=== PATIENT | male | born 1985 | race Caucasian/White ===

== ENCOUNTER 2023-10-12 10:40 | Outpatient (REF) | payer MEDICAID, SELFPAY ==
[2023-10-12 14:45] LABS: MANUAL DIFF FLAG NO
[2023-10-12 14:47] LABS: Basophils Percent Auto 0.4 % (0-2); Eosinophils Absolute Auto 0.1 X10*3/uL (0.0-0.4); Eosinophils Percent Auto 2.8 % (0-4); Hematocrit 45.3 % (42.0-52.0); Hemoglobin 15.1 g/dl (14.0-18.0); Imm Gran Abs Auto 0.02 X10*3/uL (0.00-0.03); Imm Gran Pct Auto 0.4 % (0.0-0.4); Lymphocytes Absolute Auto 1.8 X10*3/uL (1.2-4.9); Lymphocytes Percent Auto 35.2 % (20-40); Mean Corpuscular HGB Conc 33.3 g/dl (31.0-36.0); Mean Corpuscular Hemoglobin 28.7 pg (27.0-33.0); Mean Platelet Volume 10.1 fL (9.4-12.4); Monocytes Absolute Auto 0.5 X10*3/uL (0.1-1.2); Monocytes Percent Auto 9.1 % (2-11); Neutrophils Absolute Auto 2.6 x10*3/uL (2.0-8.3); Neutrophils Percent Auto 52.1 % (45-73); Platelet Count 281 X10*3/uL (160-400); Red Blood Count 5.27 X10*6/uL (4.60-5.80); Red Cell Distribution Width 12.9 % (11.0-16.0); White Blood Count 5.1 X10*3/uL (4.8-10.8)
[2023-10-12 14:54] LABS: Estimated Average Glucose 100 mg/dL; Hemoglobin A1c % 5.1 % (<6.0)
[2023-10-12 15:08] LABS: Anion Gap 12 (12-20); Blood Urea Nitrogen 11 mg/dL (9-16); Calcium 9.2 mg/dL (8.4-10.2); Carbon Dioxide 27 mmol/L (22-29); Chloride 104 mmol/L (96-108); Estimated Glomerular Filt Rate > 60; Glucose Fasting 80 mg/dL (60-99); Potassium 3.9 mmol/L (3.3-5.1); Sodium 139 mmol/L (135-145)
== END 2023-10-12 10:41 | disposition home or self-care (01) ==
LOC: HO.CHCLDS 10:40
PROVIDERS: Visit Provider Nurse Practitioner Family
DX: R60.9 Edema, unspecified (principal)
CPT/HCPCS: 36415; 80048; 83036; 84443; 85025

== ENCOUNTER 2023-12-26 12:43 | Outpatient (REF) | payer MEDICAID, SELFPAY ==
[2023-12-26 13:52] LABS: Appearance Urine Clear; Color Urine Yellow; Glucose Urine UA Negative (Negative); Leukocyte Esterase Urine Small (1+) (Negative); Nitrite Urine Negative (Negative); PH 5.5 (5.0-9.0); UMIC TRIGGER UACC YES; Urine Blood Negative (Negative); Urine Ketones Negative (Negative); Urine Protein Negative (Neg-Trace)
[2023-12-26 14:02] LABS: Bacteria Urine None Seen (None Seen); RBC Urine 0-2 /HPF (0-2); UACC Culture Trigger YES
[2023-12-26 14:53] LABS: CT PCR NOT DETECTED (Not Detect.); NG PCR NOT DETECTED (Not Detect.)
[2023-12-26 16:10] LABS: MANUAL DIFF FLAG NO
[2023-12-26 16:24] LABS: Basophils Absolute Auto 0.1 X10*3/uL (0.0-0.2); Basophils Percent Auto 0.9 % (0-2); Eosinophils Absolute Auto 0.2 X10*3/uL (0.0-0.4); Eosinophils Percent Auto 2.6 % (0-4); Imm Gran Abs Auto 0.02 X10*3/uL (0.00-0.03); Imm Gran Pct Auto 0.3 % (0.0-0.4); Lymphocytes Absolute Auto 1.7 X10*3/uL (1.2-4.9); Lymphocytes Percent Auto 29.6 % (20-40); Mean Corpuscular HGB Conc 33.3 g/dl (31.0-36.0); Mean Corpuscular Hemoglobin 28.6 pg (27.0-33.0); Mean Corpuscular Volume 85.7 fL (80.0-98.0); Mean Platelet Volume 10.3 fL (9.4-12.4); Monocytes Absolute Auto 0.5 X10*3/uL (0.1-1.2); Monocytes Percent Auto 8.9 % (2-11); Neutrophils Absolute Auto 3.4 x10*3/uL (2.0-8.3); Neutrophils Percent Auto 57.7 % (45-73); Platelet Count 320 X10*3/uL (160-400); Red Cell Distribution Width 13.1 % (11.0-16.0); White Blood Count 5.8 X10*3/uL (4.8-10.8)
[2023-12-26 16:27] LABS: Estimated Average Glucose 100 mg/dL; Hemoglobin A1c % 5.1 % (<6.0)
[2023-12-26 16:44] LABS: Alanine Aminotransferase 46 U/L (0-40); Albumin Level 4.5 g/dL (3.5-5.0); Alkaline Phosphatase 59 U/L (39-117); Anion Gap 11 (12-20); Aspartate Amino Transferase 31 U/L (5-37); Bilirubin Total 0.4 mg/dL (0.0-1.0); Blood Urea Nitrogen 12 mg/dL (9-16); Calcium 10.1 mg/dL (8.4-10.2); Carbon Dioxide 28 mmol/L (22-29); Chloride 103 mmol/L (96-108); Cholesterol 189 mg/dL (<200); Estimated Glomerular Filt Rate > 60; Glucose Random 93 mg/dL (60-115); HDL Cholesterol 47 mg/dL (>40); LDL Cholesterol Calculated 122 mg/dL (<100); Sodium 138 mmol/L (135-145); Total Protein 8.1 g/dL (6.5-8.0); Triglycerides 100 mg/dL (<150)
[2023-12-26 17:00] LABS: TSH reflex Free T4 1.85 uIU/mL (0.32-4.0)
[2023-12-27 08:17] LABS: HIV AB/AG Nonreactive (Nonreactive); HIV Num 1 0.06 S/CO (0.00-0.99); ~HepC Num1 0.11 S/CO (0.00-0.79); ~Hepatitis C Antibody Nonreactive (Nonreactive)
[2023-12-28 16:09] LABS: RPR Rapid Plasma Reagin NON-REACTIVE (NON-REACTIVE)
== END 2023-12-26 12:44 | disposition home or self-care (01) ==
LOC: HO.HHCL 12:43
PROVIDERS: Visit Provider General Practice
DX: I10 Essential (primary) hypertension (principal); R30.0 Dysuria; F32.A Depression, unspecified; Z11.3 Encounter for screening for infections with a predominantly sexual mode of transmission
CPT/HCPCS: 0353U; 36415; 80053; 80061; 81001; 83036; 84443; 85025; 86592; 86803; 87086; 87389

== ENCOUNTER 2024-09-08 10:09 | Outpatient (REF) | payer MEDICAID, SELFPAY ==
--- NOTE | ~2024-09-08 | XR_ITS ---
EXAMINATION: XR CHEST CLINICAL INFORMATION: hemoptysis COMPARISON: June 20, 2016. TECHNIQUE: 2 views of the chest were obtained. FINDINGS: Poor inspiration. No consolidation, pleural effusion or pneumothorax. Cardiomediastinal silhouette demonstrates prominence of the inferior perihilar regions bilaterally. Heart silhouette is normal in size. Multilevel thoracic spondylosis. XR/XR chest 2V IMPRESSION: Consider chronic interstitial lung disease. Superimposed acute small airway inflammatory disease cannot be excluded. Electronically signed by: Timbo Osullivan MD 09/08/2024 10:41 AM LIVE BRIC[facility]
--- OUTSIDE RECORDS SUMMARY | 2024-09-08 11:22 | XMS_ITS | Clinical Summary ---
Author Organization 175 [facility] Address 175 [place] [address] Phone Care Team Providers Care Vamper Name Role Phone Leslie Rios MD Primary Care Provider [phone] Allergies Active Allergy Reactions Criticality Noted Date Comments Other 10/26/2022 Seasonal Other Reaction(s): Rash/Dermatitis, Runny Nose/Rhinitis Medications buPROPion XL (WELLBUTRIN XL) 150 mg 24 hr tablet Take 1 Tablet by mouth every morning for 30 days. 4 Active acetaminophen (TYLENOL) 500 mg capsule Take by mouth. Activ e TORSEMIDE ORAL Take 10 mg by mouth 2 (two) times a day. Active lisinopriL (PRINIVIL,ZESTRIL ) 2.5 mg tablet Take 1 tablet (2.5 mg total) by mouth 1 (one) time each day. Active ascorbic acid (VITAMIN C) 500 mg tablet Take 1 tablet (500 mg total) by mouth 1 (one) time each day. Active medical supply, miscellaneous (MISCELLANEOUS MEDICAL SUPPLY MISC) Inhale by mouth. 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 10/25/2022 Hypertension 10/25/2022 Obstructive sleep apnea syndrome 04/23/2017 Cough 11/03/2016 Class 3 severe obesity due t o excess calories with body mass index (BMI) of 50.0 to 59.9 in adult Encounters Date Type Department Care Team Description 08/12/2024 [facility] 175 [facility] [address] [place] [phone] Hailey Ledezma MD New Rx for CPAP machine 08/04/2024 Telephone [facility] 175 [facility] [address] [place] [phone] Janis Shi MA DME 06/13/2024 8:15 AM EST [facility] 175 [facility] [address] [place] [phone] Hailey Ledezma MD Obstructive sleep apnea syndrome (Primary Dx) 06/13/2024 [facility] 175 [facility] [address] [place] [phone] Janis Shi MA DME request (Order for CPAP replacement sent to [facility]. ) from Last 3 Months Social History Tobacco Use Types Packs/Day Years Used Date Smoking Tobacco: Never Smokeless Tobacco: Never Tobacco Cessation:Counseling Given: Not Answered Alcohol Use Standard Drinks/Week Comments No 0 (1 standard drink = 0.6 oz pur e alcohol) Sex and Gender Information Value Date Recorded Sex Assigned at Not on file Legal Sex Male 6:19 PM EST Gender Identity Not on file Sexual Orientation Not on file Obstetrics History Last Filed Vital Signs Vital Sign Reading Time Taken Comments Blood Pressure 132/80 06/13/2024 8:28 AM EST Pulse 75 06/13/2024 8:28 AM EST Temperature 35.7 ??C (96.2 ??F) 06/13/2024 8:28 AM ES T Respiratory Rate 16 06/13/2024 8:28 AM EST Oxygen Saturation 97% 06/13/2024 8:28 AM EST Inhaled Oxygen Concentration - - Weight 180 kg (396 lb) 06/13/2024 8:28 AM EST Height 177.8 cm (5' 10 ) 06/13/2024 8:28 AM EST Body Mass Index 56.82 06/13/2024 8:28 AM EST Plan of Treatment Upcoming Encounters Date Type Department Care Team (Late st Contact Info) Description 09/09/2024 11:15 AM EST Office Visit Bariatric Surgery - [place] 175 [facility] [address] [place] [phone] Lyndsey Frank MD 175 [facility] [address] [place] [address] 05/15/2025 2:45 PM EDT Office Visit Pulmonolgy - [place] 175 [facility] [address] [place] [phone] Hailey Ledezma MD 175 [facility] [address] [place] [address] Health Maintenance Due Date Last Done Comments Hepatitis B Vaccines (1 of 3 - 19+ 3-dose series) 10/05/2003 Social Influencers of Health Screening 06/17/2022 Hypertension/CHF/CAD Annual BMP Blood Test 08/29/2023 COVID-19 Vaccine ( season) 2024 08/11/2021, 10/13/2020, 09/15/2020 Depression Screening 12/25/2024 12/26/2023, 09/03/19 24 DTaP,Tdap,and Td Vaccines (2 - Td or Tdap) 04/30/2027 04/30/2017 Cholesterol Screening (Lipid Panel) 12/25/2028 12/26/2023 Pneumococcal Vaccine: Pediatrics (0 to 5 Years) and At-Risk Patients (6 to 64 Years) Aged Out 05/10/2016 No longer eligible based on patient's age to complete this topic HIV Screening Completed 12/26/2023 Hepatitis C Screening Completed 12/26/2023 Influenza Vaccine Completed 06/02/2024, , 04/30/2017, Additional history exists HIB Vaccines Aged Out No longer eligi ble based on patient's age to complete this topic HPV Vaccines Aged Out No longer eligi ble based on patient's age to complete this topic Hepatitis A Vaccines Aged Out No long er eligible based on patient's age to complete this topic IPV Vaccines Aged Out No longer eligi ble based on patient's age to complete this topic MMR Vaccines Aged Out No longer eligi ble based on patient's age to complete this topic Meningococcal ACWY Vaccine Aged Out N o longer eligible based on patient's age to complete this topic Meningococcal B Vacine Aged Out No lo nger eligible based on patient's age to complete this topic RSV Immunization Patients Under 20 months Aged Out No longer eligible based on patient's age to complete this topic Varicella Vaccines Aged Out No longer eligible based on patient's age to complete this topic Procedures Procedure Name Priority Date/Time Associated Diagnosis Comments POLYSOMNOGRAPHY Routine 09/04/2024 11:35 AM EST DEPRESSION SCREENING Routine 09/03/2023 from Last 3 Months or Most Recently Relevant to Health Maintenance Results * Polysomnography (09/04/2024 11:35 AM EST) Historical Provider SLEEP CENTER ORDERABLES F inal Result * Depression Screening (09/03/2023) Depression Screening Abstracted us Historical Provider HEALTH MAINTENANCE Final Result from Last 3 Months or Most Recently Relevant to Health Maintenance Insurance [facility] Care Teams Vamper Relationship Specialty Start Date End Date Leslie Rios MD [address] [place] [phone] PCP - General 10/02/22
--- OUTSIDE RECORDS SUMMARY | 2024-09-08 11:22 | XMS_ITS | Encounter Summary ---
Author Organization [employer] [facility] Address 75 [facility] 7t [place] [address] Care Team Providers Care Billet Heater Operator Name Role Phone Tenisha Castillo MD Primary Care Provider [phone] Reason for Referral * Consultation (Routine) - Closed Specialty Diagnoses / Procedures Referred By Contac t Referred To Contact Sleep Medicine Diagnoses LUPE (obstructive sleep apnea) Tenisha Castillo MD [address] [place] [address] Phone: tel: fax: Hailey Ledezma [address] [facility] [address] [place] [address] Phone: tel: fax: Referral ID Status Reason Start Date Expiration Date V isits Requested Visits Authorized [id number] Closed Specialty Services Required 10/10/2023 10/09/2024 6 6 Encounter Details Date Type Department Care Team (Late st Contact Info) Description 10/10/2023 Orders Only [facility] MED[facility] [address] [place], [place] [phone] Tenisha Castillo MD [address] [place], [place] [phone] LUPE (obstructive sleep apnea) (Primary Dx) Social History Tobacco Use Types Packs/Day Years Used Date Smoking Tobacco: Never Assessed Sex and Gender Information Value Date Recorded Sex Assigned at Male 05/15/2022 10:30 AM EDT Legal Sex Male 10:30 AM EDT Gender Identity Male 05/15/2022 10:30 AM EDT Sexual Orientation Bisexual 05/15/2022 10 :30 AM EDT documented as of this encounter Plan of Treatment Scheduled Referrals Name Type Priority Associated Diagnoses Orde r Schedule Referral to Sleep Medicine Outpatient Referral Routine LUPE (obstructive sleep apnea) Expected: 10/10/2023 (Approximate), Expires: 10/09/2024 documented as of this encounter Procedures Procedure Name Priority Date/Time Associated Diagnosis Comments CULTURE, URINE, ROUTINE Routine 12/26/2023 12:00 AM EDT LUPE (obstructive sleep apnea) documented in this encounter Results * Culture, Urine, Routine (12/26/2023 12:00 AM EDT) Urine Urine specimen obtained by clean catch procedure / Unknown 12/26/2023 12/26/2023 Comment:[facility] - 12/27/2023 11:16 AM EDT Urine Culture Report Result Urine Culture 50,000 to 100,000 cfu/ml Urine Culture Mixed bacterial donya characteristic of Urine Culture urogenital contamination. Specimen Source: Urine clean catch Tenisha Castillo MD LAB MICROBIOLOGY - GENERAL ORD ERABLES Final Result [facility] [address] [place] [phone] documented in this encounter Visit Diagnoses Diagnosis LUPE (obstructive sleep apnea)- Primary Obstructive sleep apnea (adult) (pediatric) documented in this encounter Care Teams Billet Heater Operator Relationship Specialty Start Date End Date Tenisha Castillo MD [address] [place] [phone] PCP - General Family Medicine 10/05/23 documented as of this encounter
--- OUTSIDE RECORDS SUMMARY | 2024-09-08 11:22 | XMS_ITS | Encounter Summary ---
Author Organization [employer] [facility] Address 75 [facility] 7t [place] [address] Care Team Providers Care Dairy Manager Name Role Phone Leslie Rios MD Primary Care Provider + Tenisha Castillo MD Primary Care Provider [phone] Encounter Details Date Type Department Care Team (Latest Contact Info) Description 08/25/2019 Abstract [facility], Provider, DDS Social History Tobacco Use Types Packs/Day Years Used Date Smoking Tobacco: Never Assessed Sex and Gender Information Value Date Recorded Sex Assigned at Male 05/15/2022 10:30 AM EDT Legal Sex Male 10:30 AM EDT Gender Identity Male 05/15/2022 10:30 AM EDT Sexual Orientation Bisexual 05/15/2022 10 :30 AM EDT documented as of this encounter Plan of Treatment Not on file documented as of this encounter Visit Diagnoses Not on filedocumented in this encounter Care Teams Dairy Manager Relationship Specialty Start Date End Date Leslie Rios MD [address] [place] [address] PCP - General Family Medicine 02/28/17 08/22/23 Tenisha Castillo MD [address] [place] [address] PCP - General Family Medicine 10/05/23 documented as of this encounter
--- OUTSIDE RECORDS SUMMARY | 2024-09-08 11:22 | XMS_ITS | Encounter Summary ---
Author Organization [employer] Address [address] [facility] [address] [place] [address] Care Team Providers Care Handbag Designer Name Role Phone Tenisha Castillo MD Primary Care Provider [phone] Encounter Details Date Type Department Care Team (Latest Contact Info) Description 09/08/2024 Travel Social History Tobacco Use Types Packs/Day Years Used Date Smoking Tobacco: Never Smokeless Tobacco: Never Alcohol Use Standard Drinks/Week Comments Never 0 (1 standard drink = 0.6 oz pur e alcohol) Alcohol Answer Date Recorded Frequency of Alcohol Consumption Not on file 12/26/2023 Average Number of Drinks Not on file 024 Frequency of Binge Drinking Not on file 12/14 Score 0 12/26/2023 Depression Answer Date Recorded Patient Health Questionnaire-9 Score 18 12/26/2023 Patient Health Questionnaire-9 Score 18 12/26/2023 Last PHQ-9: Questionnaire Data Not on file 0 12/26/2023 Housing Stability Answer Date Recorded What is your housing situation today? I have housing today, but I am worried about losing housing in the future 12/26/[address] you li ve. Do you have problems with any of the following? None of the above 12/26/2023 Food Insecurity Answer Date Recorded Within the past 12 months, y ou worried that your food would run out before you got money to buy more: Never True 12/26/2023 Within the past 12 months,th e food you bought just didn't last and you didn't have enough money to get more: Never True 06/2024 Transportation Answer Date Recorded In the past 12 months, has l ack of transportation kept you from medical appts, meetings, work or from getting things needed for daily living? Yes, it has kept me from medical appointments or getting medications.;No 12/26/2023 Utilities Answer Date Recorded In the past 12 months, has t he electric, gas, oil or water company threatened to shut off services in your home? No 12/26/2023 Depression Answer Date Recorded Patient Health Questionnaire-2 Score 4 12/26/2023 Sex and Gender Information Value Date Recorded Sex Assigned at Male 05/15/2022 10:30 AM EDT Legal Sex Male 10:30 AM EDT Gender Identity Male 05/15/2022 10:30 AM EDT Sexual Orientation Bisexual 05/15/2022 10 :30 AM EDT documented as of this encounter Plan of Treatment Not on file documented as of this encounter Visit Diagnoses Not on filedocumented in this encounter Additional Health Concerns Assessment Noted Time PHQ-9 Depression Total Score: 18 024 1:03 PM EDT documented as of this encounter Care Teams Handbag Designer Relationship Specialty Start Date End Date Tenisha Castillo MD [address] [place] [phone] PCP - General Family Medicine 10/05/23 documented as of this encounter
--- OUTSIDE RECORDS SUMMARY | 2024-09-08 11:22 | XMS_ITS | Encounter Summary ---
Author Organization [employer] [facility] Address 75 [facility] 7t [place] [address] Care Team Providers Care Asbestos Worker Helper Name Role Phone Tenisha Castillo MD Primary Care Provider [phone] Encounter Details Date Type Department Care Team (Late st Contact Info) Description 11/01/2023 Telephone [facility] MEDICINE [address] [place], [place] [phone] Tenisha Castillo MD [address] [place], [place] [phone] Social History Tobacco Use Types Packs/Day Years [...] on filedocumented in this encounter Care Teams Asbestos Worker Helper Relationship Specialty Start Date End Date Tenisha Castillo MD [address] [place] [address] PCP - General Family Medicine 10/05/23 documented as of this encounter
--- OUTSIDE RECORDS SUMMARY | 2024-09-08 11:22 | XMS_ITS | Encounter Summary ---
Author Organization [employer] Address [address] [place] [address] Care Team Providers Care Angiographer Name Role Phone Leslie Rios MD Primary Care Provider [phone] Reason for Visit * Reason Onset Date Comments New Rx for CPAP machine 08/12/2024 Encounter Details Date Type Department Care Team (Late st Contact Info) Description 08/12/2024 Telephone Pulmonolgy - [place] 175 [facility] [address] [place] [phone] Hailey Ledezma MD 175 [facility] [address] [place] [address] New Rx for CPAP machine Social History Tobacco Use Types Packs/Day Years Used Date Smoking Tobacco: Never Smokeless Tobacco: Never Alcohol Use Standard Drinks/Week Comments No 0 (1 standard drink = 0.6 oz pur e alcohol) Sex and Gender Information Value Date Recorded Sex Assigned at Not on file Legal Sex Male 6:19 PM EST Gender Identity Not on file Sexual Orientation Not on file documented as of this encounter Progress Notes * Mily Casiano - 08/12/2024 9:00 AM EST Pt came into the office stating that his CPAP machine comes up with an error something about the motor is going. [facility] needs the below items to be faxed to them at [phone] -new RX with settings -copy of sleep study -clinical notes prior to sleep study documented in this encounter Plan of Treatment Upcoming Encounters Date Type Department Care Team (Late st Contact Info) Description 09/09/2024 11:15 AM EST Office Visit Bariatric Surgery - [place] [address] [facility] [address] [place] [address] Lyndsey Frank MD 175 [facility] [address] [place] [address] 05/15/2025 2:45 PM EDT Office Visit Pulmonolgy - [place] [address] [facility] [address] [place] [phone] Hailey Ledezma MD 175 [facility] [address] [place] [address] documented as of this encounter Visit Diagnoses Not on filedocumented in this encounter Care Teams Angiographer Relationship Specialty Start Date End Date Leslie Rios MD 230 [facility] [address] [place] [address] PCP - General 10/02/22 documented as of this encounter
--- OUTSIDE RECORDS SUMMARY | 2024-09-08 11:22 | XMS_ITS | Encounter Summary ---
Author Organization [employer] Address 75 [facility] 7t [place] [address] Care Team Providers Care Pull Up Hand Name Role Phone Tenisha Castillo MD Primary Care Provider [phone] Encounter Details Date Type Department Care Team ([facility] st Contact Info) Description 09/08/2024 9:30 AM EST Office Visit [facility] MEDICINE [address] [place], [place] [phone] Opal Pleitez MD [address] [place], [place] [phone] Hemoptysis (Primary Dx); Cough, unspecified type Social History Tobacco Use Types Packs/Day Years [...] the past 12 months, has t he [employer], gas, oil or water company threatened to [...] AM EDT documented as of this encounter Last Filed Vital Signs Vital Sign Reading Time Taken Comments Blood Pressure 133/80 09/08/2024 9:11 AM EST Pulse 74 09/08/2024 9:11 AM EST Temperature 36.5 ??C (97.7 ??F) 09/08/2024 9:11 AM ES T Respiratory Rate 21 09/08/2024 9:11 AM EST Oxygen Saturation 98% 09/08/2024 9:11 AM EST Inhaled Oxygen Concentration - - Weight 177 kg (390 lb) 09/08/2024 9:11 AM EST Height 177.8 cm (5' 10 ) 09/08/2024 9:11 AM EST Body Mass Index 55.96 09/08/2024 9:11 AM EST documented in this encounter Miscellaneous Notes * Assessment & Plan Note - Adam Camacho - 09/08/2024 10:03 AM ESTAssociated Problem(s): Cough -Pt reports hemoptysis -Will check for TB although it is unlikely -Will restart Loratadine, will add Flonase -Review the side effects and symptoms -Continue supportive care and CPAP documented in this encounter Plan of Treatment Scheduled Orders Name Type Priority Associated Diagnoses Orde r Schedule T-SPOT??.TB Lab Routine Cough, unspecified type Hemoptysis Expected: 09/08/2024 (Approximate), Expires: 09/08/2025 documented as of this encounter Procedures Procedure Name Priority Date/Time Associated Diagnosis Comments XR CHEST 2 VIEWS Routine 09/08/2024 10:1 0 AM EST Cough, unspecified type Hemoptysis POCT INFLUENZA B (ID NOW RAPID MOLECULAR) Routine 09/08/2024 9:24 AM EST Cough, unspecified type POCT INFLUENZA A (ID NOW RAPID MOLECULAR) Routine 09/08/2024 9:23 AM EST Cough, unspecified type POCT COVID-19 AG CLEMONS ID NOW Routine 09/08/2024 9:19 AM EST Cough, unspecified type documented in this encounter Results * XR Chest 2 Views (09/08/2024 10:10 AM EST) Anatomical Region Laterality Modality Chest Radiographic Peg ging 09/08/2024 10:1 0 AM EST Narrative 09/08/2024 10:44 AM EST ?[facility] ?[address] ?[place] [address] ?XRay Report ? Signed ? Patient: Juan Diego Kiran,Yonatan Melvin ? MR#: [id number] ? : 1985 ?Acct:[id number] ? Age/Sex: 38 / M ?ADM Date: //25 ? Loc: HO.HHCX ? Attending Dr: Opal Pleitez MD ? Ordering Physician: Opal Pleitez MD ?? Date of Service: 09/08/24 ?? Procedure(s): XR chest 2V ?? Accession Number(s): [id number] ? cc: Opal Pleitez MD ? EXAMINATION: ?? XR CHEST ? CLINICAL INFORMATION: ?? hemoptysis ? COMPARISON: ?? June 20, 2016. ? TECHNIQUE: ?? 2 views of the chest were obtained. ? FINDINGS: ?? Poor inspiration. ?? No consolidation, pleural effusion or pneumothorax. ?? Cardiomediastinal silhouette demonstrates prominence of the inferior ?? perihilar regions bilaterally. ?? Heart silhouette is normal in size. Multilevel thoracic spondylosis. ? XR/XR chest 2V ?? IMPRESSION: ?? Consider chronic interstitial lung disease. Superimposed acute small ?? airway inflammatory disease cannot be excluded. ? Electronically signed by: ??Timbo Osullivan MD ??09/08/2024 10:41 AM ?? EST RP ? Dictated By: ?Timbo Mcnamara MD ? Signed By: ?<Electronically signed by Timbo Jeffery MD in OV> ? 09/08/24 1041 ? DD/ 1010 ? TD/TT: 09/08/24 1020 ? Gambling Box Person: ? Procedure Note Millieter, Image - 09/08/2024 [place] [address] XRay Report Signed Patient: Yonatan Veliz MR#: [id number] : 1985Acct:[id number] Age/Sex: 38 / MADM Date: 09/08/24 Loc: HO.HHCX Attending Dr: Opal Pleitez MD Ordering Physician: Opal Pleitez MD Date of Service: 09/08/24 Procedure(s): XR chest 2V Accession Number(s): [id number] cc: Opal Pleitez MD EXAMINATION: XR CHEST CLINICAL INFORMATION: hemoptysis COMPARISON: June 20, 2016. TECHNIQUE: 2 views of the chest were obtained. FINDINGS: Poor inspiration. No consolidation, pleural effusion or pneumothorax. Cardiomediastinal silhouette demonstrates prominence of the inferior perihilar regions bilaterally. Heart silhouette is normal in size. Multilevel thoracic spondylosis. XR/XR chest 2V IMPRESSION: Consider chronic interstitial lung disease. Superimposed acute small airway inflammatory disease cannot be excluded. Electronically signed by: Timbo Osullivan MD 09/08/2024 10:41 AM EST Dictated By: Timbo Mcnamara MD Signed By: <Electronically signed by Timbo Jeffery MDin OV> 09/08/24 1041 DD/ 1010 TD/TT: 09/08/24 1020 Gambling Box Person: Opal Pleitez MD IMG XR PROCEDURES Final Result * POCT Rapid Influenza B CLEMONS ID NOW (09/08/2024 9:24 AM EST) Influenza B Negative Negative, Indeterminate [facility] QC Media Lot # [id number] [facility] Lot# Expiration Date [facility] Swab 09/08/2024 9:24 AM EST Opal Pleitez MD POINT OF CARE TEST ENTER/EDIT OR DERABLES Final Result Performing Organization Address [facility] Co de Phone Number [facility] [address] [place] [phone] * POCT Rapid Influenza A CLEMONS ID NOW (09/08/2024 9:23 AM EST) Influenza A Negative Negative, Indeterminate [facility] QC Media Lot # [id number] [facility] Lot# Expiration Date [facility] Swab 09/08/2024 9:23 AM EST Opal Pleitez MD POINT OF CARE TEST ENTER/EDIT OR DERABLES Final Result Performing Organization Address [facility]/ZIP Co de Phone Number [facility] [address] [place] [phone] * POCT Rapid Covid-19 CLEMONS ID NOW (09/08/2024 9:19 AM EST) Coronavirus Antigen PCR Negative Negative, Indeterminate, None Detected, Invalid, Specimen unsatisfactory for evaluation, Weakly Positive QC Media Lot # [id number] Lot# Expiration Date Swab 09/08/2024 9:19 AM EST Opal Pleitez MD POINT OF CARE TEST ENTER/EDIT OR DERABLES Final Result documented in this encounter Visit Diagnoses Diagnosis Hemoptysis- Primary Cough, unspecified type documented in this encounter Additional Health Concerns Assessment Noted Time PHQ-9 Depression Total Score: 18 024 1:03 PM EDT documented as of this encounter Care Teams Pull Up Hand Relationship Specialty Start Date End Date Tenisha Castillo MD [address] [place] [phone] PCP - General Family Medicine 10/05/23 documented as of this encounter
--- OUTSIDE RECORDS SUMMARY | 2024-09-08 11:22 | XMS_ITS | Encounter Summary ---
Author Organization [facility] Address [address] [facility] [address] [place] [address] Care Team Providers Care Asphalt Heater Tender Name Role Phone Tenisha Castillo MD Primary Care Provider [phone] Reason for Visit * Reason Onset Date Comments Error 12/17/2023 Encounter Details Date Type Department Care Team ([facility] st Contact Info) Description 12/17/2023 Telephone [facility] MEDICINE [address] [place], [place] [phone] Tenisha Castillo MD [address] [place] [address] Error Social History Tobacco Use Types Packs/Day Years [...] on filedocumented in this encounter Care Teams Asphalt Heater Tender Relationship Specialty Start Date End Date Tenisha Castillo MD [address] [place], [place] [phone] PCP - General Family Medicine 10/05/23 documented as of this encounter
--- OUTSIDE RECORDS SUMMARY | 2024-09-08 11:22 | XMS_ITS | Clinical Summary ---
Author Organization [employer] Address [address] [facility] 7t [place] [address] Care Team Providers Care Dinkey Engineer Name Role Phone Tenisha Castillo MD Primary Care Provider [phone] Allergies No known active allergies Medications * This document contains information received from the source organization and may not represent a complete record from that organization. Acetaminophen 500 MG capsule Take by mouth. Active loratadine (Claritin) 10 MG tablet Take 1 tablet (10 mg) by mouth Once per day. For allergies 90 tablet 1 09/08/19 25 Active fluticasone (Flonase) 50 MCG/ACT nasal spray Administer 1-2 sprays into each nostril Once per day. Shake gently. Before first use, prime pump. After use, clean tip and replace cap. 16 g 2 09/08/19 25 026 Active buPROPion XL (Wellbutrin XL) 150 MG 24 hr tablet Take 150 mg by mouth in the morning. 09/03/19 24 025 Discontinued(Me d list cleanup (will not trigger notification to Pharmacy)) naltrexone (Depade) 50 MG tablet Take 25 mg by mouth in the morning. 04/26/20 23 025 Discontinued(Me d list cleanup (will not trigger notification to Pharmacy)) loratadine (Claritin) 10 MG tablet Take 1 tablet (10 mg) by mouth Once per day. For allergies 90 tablet 12/26/19 24 025 Discontinued(Re order (will not trigger notification to Pharmacy)) ascorbic acid (Vitamin C) 500 MG tablet Take 500 mg by mouth Once per day. 025 Discontinued(Me d list cleanup (will not trigger notification to Pharmacy)) lisinopril 2.5 MG tablet Take 2.5 mg by mouth Once per day. 025 Discontinued(Me d list cleanup (will not trigger notification to Pharmacy)) Active Problems Problem Noted Date Diagnosed Date Cough 09/08/2024 Assessment & Plan (09/08/2024 10:03 AM EST): -Pt reports hemoptysis -Will check for TB although it is unlikely -Will restart Loratadine, will add Flonase -Review the side effects and symptoms -Continue supportive care and CPAP Hemoptysis 09/08/2024 Class 3 severe obesity due t o excess calories with body mass index (BMI) of 50.0 to 59.9 in adult 06/03/2024 Assessment & Plan (06/03/2024 2:37 PM EST): Going to bariatric program at [facility], is going to stop because he decided that he does not want surgery Dysuria 12/26/2023 Assessment & Plan (12/28/2023 10:36 AM EDT): Labs today will small LE and urine culture indicative of mixed donya Will repeat if desired Moderate episode of recurrent major depressive d isorder 12/26/2023 Assessment & Plan (06/03/2024 2:37 PM EST): Seeing therapist which is helpful Assessment & Plan (12/28/2023 10:36 AM EDT): consulted today for BE Absence seizure 10/10/2023 Assessment & Plan (12/26/2023 10:35 AM EDT): Never neurology followup here Diagnosed as a child in [place] Occurring few times a month, will refer to neuro for further diagnosis and treatment recommendations Dystrophia unguium 10/10/2023 Essential hypertension 10/10/2023 Assessment & Plan (06/03/2024 2:36 PM EST): Needs to monitor at home and bring BP log Not at goal <140/90 here May easily increase Lisinopril to 5mg daily if needed BMP: Lipid Panel: ASCVD Risk: Calculate pending updated labs EKG: Obtain baseline at f/u - Aerobic exercise to reduce BP. Initial goal of 30 min walk 3-5x/week. Increase as tolerated. - low-sodium diet (goal: <2g/day) and heart healthy diet such as DASH to reduce BP and prevent ASCVD. - Home BP monitoring 1-2 x day with goal of <140/90. - Seek immediate medical attention for chest pain, palpitations, SOB, syncope, or sudden changes in mental status. - Do not change or discontinue current prescriptions without first consulting health care provider Assessment & Plan (12/28/2023 10:36 AM EDT): Needs to monitor at home at bring BP log Foot pain 10/10/2023 Gastroesophageal reflux disease 10/10/2023 Generalized anxiety disorder 10/10/2023 Hypertrophy of bone 10/10/2023 LUPE (obstructive sleep apnea) 10/10/2023 Assessment & Plan (12/26/2023 10:36 AM EDT): 12/19/23 Pulm consult for severe LUPE, Dr Ledezma f/u 12 months Wears CPAP average 7 hours a night Lymphedema 10/25/2022 Varicose veins of both lower extremities with in flammation 10/25/2022 Irritant contact dermatitis 05/06/2018 Ankle ulcer 11/01/2017 Acute back pain with sciatica 05/22/2017 Encounters Date Type Department Care Team Description 09/08/2024 9:30 AM EST Office Visit [facility] [address] [place] [phone] Opal Pleitez MD Hemoptysis (Primary Dx); Cough, unspecified type 09/08/2024 Travel from Last 3 Months Immunizations Name Administration Dates Next Due Influenza injectable quadriv alent IIV4 with preservative 04/30/2017 Influenza injectable quadrivalent preservative f ree 08/31/2020 Influenza, seasonal, injectable, preservative fr ee 06/02/2024,05/10/2016 Pneumococcal Polysaccharide PPSV23 05/10/2016 Tdap 04/30/2017 Social History Tobacco Use Types Packs/Day Years Used Date Smoking Tobacco: Never Smokeless Tobacco: Never Tobacco Cessation:Counseling Given: Not Answered Alcohol Use Standard Drinks/Week Comments Never 0 [...] Orientation Bisexual 05/15/2022 10 :30 AM EDT Last Filed Vital Signs Vital Sign Reading [...] Mass Index 55.96 09/08/2024 9:11 AM EST Plan of Treatment Health Maintenance Due Date Last Done Comments Family Planning (PISQ) 10/05/1999 Hepatitis B Vaccines (1 of 3 - 19+ 3-dose series) 10/05/2003 COVID-19 Vaccine ( season) 2024 08/11/2021, 10/13/2020, 09/15/2020 Depression Monitoring (PHQ-9) 06/26/2024 12/26/2023, 12/26/2023 Alcohol/Substance Use Screening 12/25/2024 12/26/2023 Depression Screening 12/25/2024 12/26/2023, 12/26/19 SDOH Screening 12/25/2024 12/26/2023 Tobacco Screening 09/08/2025 09/08/2024 DTaP/Tdap/Td Vaccines (2 - Td or Tdap) 04/30/2027 04/30/2017 Lipid Panel 12/25/2028 12/26/2023, 08/05/2020 Zoster Vaccines (1 of 2) 2034 RSV Patients and Patients Aged 60 years or older (1 - 1-dose 75+ series) 10/05/2059 Pneumococcal Vaccine: Pediatrics (0 to 5 Years) and At-Risk Patients (6 to 49) Years) Aged Out 05/10/2016 No longer eligible [...] patient's age to complete this topic Meningococcal Vaccine Aged Out No devan mary eligible based on patient's age to complete this topic RSV under 20 months Aged Out No longe r eligible based on patient's age to complete this topic Rotavirus Vaccines Aged Out No longer eligible based [...] 09/08/2024 9:19 AM EST Cough, unspecified type HEPATITIS C AB W/REFL TO HCV RNA, QN, PCR Routine 12/26/2023 12:46 PM EDT Screening examination for STI HIV 1/2 ANTIGEN/ANTIBODY, FOURTH GENERATION W/RFL Routine 12/26/2023 12:46 PM EDT Screening examination for STI LIPID PANEL, STANDARD Routine 12/26/2023 12:46 PM EDT Essential hypertension from Last 3 Months or Most Recently Relevant to Health Maintenance Results * XR Chest 2 Views (09/08/2024 10:10 AM EST) Anatomical Region Laterality Modality Chest Radiographic Peg ging 09/08/2024 10:1 0 AM EST Narrative 09/08/2024 10:44 AM EST ?[facility] ?[address] ?[place] [address] ?XRay Report ? Signed ? Patient: Jose Alfredo,Madhu ? MR#: [id number] ? : 1985 ?Acct:[id number] ? Age/Sex: 38 / M ?ADM Date: 09/08/24 ? Loc: HO.HHCX ? Attending Dr: Opal Pleitez MD ? Ordering Physician: Opal Pleitez MD ?? Date of Service: 09/08/24 ?? Procedure(s): XR chest 2V ?? Accession Number(s): [id number] ? cc: Opal Pleitez MD ? EXAMINATION: [...] DD/ 1010 ? TD/TT: 09/08/24 1020 ? Health Economist: ? Procedure Note Chris, Estrella - 09/08/[address] [address] XRay Report Signed Patient: Yonatan Veliz MR#: [id number] : 1985Acct:[id number] Age/Sex: 38 / MADM Date: 09/08/24 Loc: HO.HHCX Attending Dr: Opal Pleitez MD Ordering Physician: Opal Pleitez MD Date of Service: 09/08/24 Procedure(s): XR chest 2V Accession Number(s): [id number] cc: Opal Pleitez MD EXAMINATION: XR CHEST [...] 09/08/24 1041 DD/ 1010 TD/TT: 09/08/24 1020 Health Economist: Opal Pleitez MD IMG XR PROCEDURES Final Result * POCT Rapid Influenza B CLEMONS ID NOW (09/08/2024 9:24 AM EST) Influenza B Negative Negative, Indeterminate [facility] QC Media Lot # [id number] [facility] Lot# Expiration Date [facility] Swab 09/08/2024 9:24 AM EST Opal Pleitez MD POINT OF CARE TEST ENTER/EDIT OR DERABLES Final Result [facility] [address] [place] [phone] * POCT Rapid Influenza A CLEMONS ID NOW (09/08/2024 9:23 AM EST) Influenza A Negative Negative, Indeterminate [facility] QC Media Lot # [id number] [facility] Lot# Expiration Date [facility] Swab 09/08/2024 9:23 AM EST Opal Pleitez MD POINT OF CARE TEST ENTER/EDIT OR DERABLES Final Result Performing Organization Address [facility]/ZIP Co de Phone Number [facility] [address] [place] [phone] * POCT Rapid Covid-19 CLEMONS ID NOW (09/08/2024 9:19 AM EST) Pathologist [facility] Coronavirus Antigen PCR Negative Negative, Indeterminate, None Detected, Invalid, Specimen unsatisfactory for evaluation, Weakly Positive QC Media Lot # [id number] Lot# Expiration Date [id number] Swab 09/08/2024 9:19 AM EST Opal Pleitez MD POINT OF CARE TEST ENTER/EDIT OR DERABLES Final Result * Hepatitis C Antibody with Reflex to HCV, RNA, Quantitative, Real-Time PCR (12/26/2023 12:46 PM EDT) [facility] Hepatitis C Antibody Nonreactive Nonreactive [facility] Comment:Antibodies to HCV no t detected; does not exclude early acuteHCV infection. Blood Venous blood specimen / Unknown 12/26/2023 12:46 PM EDT 12/26/2023 4:08 PM EDT Tenisha Castillo MD LAB BLOOD ORDERABLES Final Res ult Performing Organization Address [facility]/ZIP Co de Phone Number [facility] [address] [place] [phone] * HIV-1/2 Antigen and Antibodies, Fourth Generation, with Reflexes (12/26/2023 12:46 PM EDT) Pathologist [facility] HIV AB/AG Nonreactive Nonreactive [facility] Comment:HIV-1 p24 Ag and/or HIV-1/HIV-2 Ab not detected.A test result that is nonreactive does not exclude thepossibility of exposure to or infection with HIV-1 and/orHIV-2. Nonreactive results in this assay for individualswith prior exposure to HIV-1 and/or HIV-2 may be due toantigen and antibody levels that are below the limit ofdetection of this assay.The [employer] HIV Ag/Ab Combo assay result andsupplemental assay results should be interpreted inconjunction with the patient's clinical presentation,history and other laboratory results. If the results areinconsistent with clinical evidence, additional testing issuggested to confirm the result. Blood Venous blood specimen / Unknown 12/26/2023 12:46 PM EDT 12/26/2023 4:08 PM EDT us Tenisha Castillo MD LAB BLOOD ORDERABLES Final Res ult [facility] [address] [place] [phone] * (ABNORMAL) Lipid Panel, Standard (12/26/2023 12:46 PM EDT) Triglycerides 100 <150 mg/dL [facility] Comment:Desirable Triglyceri de: less than 150 mg/dLBorderline High Triglyceride 150-199 mg/dLHigh Triglyceride: 200-499 mg/dLVery High Triglyceride: greater than or equal to 5OO mg/dL Cholesterol 189 <200 mg/dL [facility] Comment:Desirable Cholestero l: less than 200 mg/dLBorderline High Cholesterol: 200-239 mg/dLHigh Cholesterol: greater than 239 mg/dL LDL Cholesterol Calculated 122(H) <100 mg/dL [facility] Comment:Desirable LDL: less than 100 mg/dLNear Optimal/Above Optimal LDL: 110- 129 mg/dLBorderline High LDL: 130-159 mg/dLHigh LDL: 160-189 mg/dLVery High LDL: greater than or equal to 190 mg/dL HDL Cholesterol 47 >40 mg/dL [facility] Comment:Desirable HDL: great er than 40 mg/dL Note: This HDL assay may give artificially low results in patients with liver disease. Blood Venous blood specimen / Unknown 12/26/2023 12:46 PM EDT 12/26/2023 4:08 PM EDT us Tenisha Castillo MD LAB BLOOD ORDERABLES Final Res ult [facility] [address] [place] [phone] from Last 3 Months or Most Recently Relevant to Health Maintenance Insurance [facility] Care Teams Dinkey Engineer Relationship Specialty Start Date End Date Tenisha Castillo MD [address] [place] [phone] PCP - General Family Medicine 10/05/23
--- OUTSIDE RECORDS SUMMARY | 2024-09-08 11:22 | XMS_ITS | Encounter Summary ---
Author Organization [facility] Address [address] [facility] 7t [place] [address] Care Team Providers Care Degree Clerk Name Role Phone Leslie Rios MD Primary Care Provider + Tenisha Castillo MD Primary Care Provider [phone] Encounter Details Date Type Department Care Team (Latest Contact Info) Description 01/09/2019 Abstract [facility] CONVERSIONS Dental, Provider, DDS Social History Tobacco [...] on filedocumented in this encounter Care Teams Degree Clerk Relationship Specialty Start Date End Date Leslie Rios MD [address] [place] [address] PCP - General Family Medicine 02/28/17 08/22/23 Tenisha Castillo MD [address] [place] [address] PCP - General Family Medicine 10/05/23 documented as of this encounter
== END 2024-09-08 10:10 | disposition home or self-care (01) ==
LOC: HO.HHCX 10:09
PROVIDERS: Visit Provider Family Medicine
DX: R04.2 Hemoptysis (principal); R05.9 Cough, unspecified
CPT/HCPCS: 36415; 71046; 86481

== ENCOUNTER → 2024-09-08 10:10 | Outpatient (BNV) | payer MEDICAID, SELFPAY | PROVIDERS: Visit Provider Radiology Diagnostic Radiology | DX: R04.2 Hemoptysis (principal) | CPT/HCPCS: 71046 ==

== ENCOUNTER 2024-09-08 10:34 | Outpatient (REF) | payer MEDICAID, SELFPAY ==
--- OUTSIDE RECORDS SUMMARY | 2024-09-08 11:57 | XMS_ITS | Encounter Summary ---
Author Organization [facility] Address [address] [facility] 7t [place] [address] Care Team Providers Care Oral Surgery Technician Name Role Phone Leslie Rios MD Primary Care Provider + Tenisha Castillo MD Primary Care Provider [phone] Encounter Details Date Type Department Care Team (Latest Contact Info) Description 08/25/2019 Abstract [facility] CONVERSIONS Dental, Provider, DDS Social History Tobacco [...] on filedocumented in this encounter Care Teams Oral Surgery Technician Relationship Specialty Start Date End Date Leslie Rios MD [address] [place] [address] PCP - General Family Medicine 02/28/17 08/22/23 Tenisha Castillo MD [address] [place] [address] PCP - General Family Medicine 10/05/23 documented as of this encounter
--- OUTSIDE RECORDS SUMMARY | 2024-09-08 11:57 | XMS_ITS | Clinical Summary ---
Author Organization [employer] Address [address] [facility] 7t [place] [address] Care Team Providers Care Field Attendant Name Role Phone Tenisha Castillo MD Primary Care Provider [phone] Allergies No known active allergies Medications * [...] PM EST): Going to bariatric program at [facility], is going to stop because he decided [...] followup here Diagnosed as a child in [place] Occurring few times a month, will refer [...] Description 09/08/2024 9:30 AM EST Office Visit [facility] [address] [place] [phone] Opal Pleitez MD Hemoptysis (Primary Dx); Cough, [...] AM EST Narrative 09/08/2024 10:44 AM EST ?[place] [facility] ?[address] ?[place] [address] ?XRay Report ? Signed ? Patient: Jsoe Alfredo,Madhu ? MR#: [id number] ? : 1985 ?Acct:[id number] ? Age/Sex: 38 / M ?ADM Date: 09/08/24 ? Loc: HO.HHCX ? Attending Dr: Opal Pleitez MD ? Ordering Physician: Opal Pleitez MD ?? Date of Service: 09/08/24 ?? Procedure(s): XR chest 2V ?? Accession Number(s): [id number] ? cc: Opal Pleitez MD ? EXAMINATION: [...] DD/ 1010 ? TD/TT: 09/08/24 1020 ? Audio Visual Equipment Rental Clerk: ? Procedure Note Chris, Estrella - 09/08/[address] [address] XRay Report Signed Patient: Yonatan Veliz MR#: [id number] : 1985Acct:[id number] Age/Sex: 38 / MADM Date: 09/08/24 Loc: HO.HHCX Attending Dr: Opal Pleitez MD Ordering Physician: Opal Pleitez MD Date of Service: 09/08/24 Procedure(s): XR chest 2V Accession Number(s): [id number] cc: Opal Pleitez MD EXAMINATION: XR CHEST [...] 09/08/24 1041 DD/ 1010 TD/TT: 09/08/24 1020 Audio Visual Equipment Rental Clerk: Opal Pleitez MD IMG XR PROCEDURES Final Result * POCT Rapid Influenza B CLEMONS ID NOW (09/08/2024 9:24 AM EST) Influenza B Negative Negative, Indeterminate [facility] QC Media Lot # [id number] [facility] Lot# Expiration Date [facility] Swab 09/08/2024 9:24 AM EST Opal Pleitez MD POINT OF CARE TEST ENTER/EDIT OR DERABLES Final Result [facility] [address] [place] [phone] * POCT Rapid Influenza A CLEMONS ID NOW (09/08/2024 9:23 AM EST) Influenza A Negative Negative, Indeterminate [facility] QC Media Lot # [id number] [facility] Lot# Expiration Date [facility] Swab 09/08/2024 9:23 AM EST Opal Pleitez MD POINT OF CARE TEST ENTER/EDIT OR DERABLES Final Result Performing Organization Address [facility]/ZIP Co de Phone Number [facility] [address] [place] [phone] * POCT Rapid Covid-19 CLEMONS ID NOW (09/08/2024 9:19 AM EST) Pathologist [facility] Coronavirus Antigen PCR Negative Negative, Indeterminate, None Detected, Invalid, Specimen unsatisfactory for evaluation, Weakly Positive QC Media Lot # [id number] Lot# Expiration Date [id number] Swab 09/08/2024 9:19 AM EST Opal Pleitez MD POINT OF CARE TEST ENTER/EDIT OR DERABLES Final Result * Hepatitis C Antibody with Reflex to HCV, RNA, Quantitative, Real-Time PCR (12/26/2023 12:46 PM EDT) [facility] Hepatitis C Antibody Nonreactive Nonreactive [facility] Comment:Antibodies to HCV no t detected; does not exclude early acuteHCV infection. Blood Venous blood specimen / Unknown 12/26/2023 12:46 PM EDT 12/26/2023 4:08 PM EDT Tenisha Castillo MD LAB BLOOD ORDERABLES Final Res ult Performing Organization Address [facility]/ZIP Co de Phone Number [facility] [address] [place] [phone] * HIV-1/2 Antigen and Antibodies, Fourth Generation, with Reflexes (12/26/2023 12:46 PM EDT) Pathologist [facility] HIV AB/AG Nonreactive Nonreactive [facility] Comment:HIV-1 p24 Ag and/or HIV-1/HIV-2 Ab not detected.A test result that is nonreactive does not exclude thepossibility of exposure to or infection with HIV-1 and/orHIV-2. Nonreactive results in this assay for individualswith prior exposure to HIV-1 and/or HIV-2 may be due toantigen and antibody levels that are below the limit ofdetection of this assay.The [employer] HIV Ag/Ab Combo assay result andsupplemental assay results should be interpreted inconjunction with the patient's clinical presentation,history and other laboratory results. If the results areinconsistent with clinical evidence, additional testing issuggested to confirm the result. Blood Venous blood specimen / Unknown 12/26/2023 12:46 PM EDT 12/26/2023 4:08 PM EDT us Tenisha Castillo MD LAB BLOOD ORDERABLES Final Res ult [facility] [address] [place] [phone] * (ABNORMAL) Lipid Panel, Standard (12/26/2023 12:46 PM EDT) Triglycerides 100 <150 mg/dL [facility] Comment:Desirable Triglyceri de: less than 150 mg/dLBorderline High Triglyceride 150-199 mg/dLHigh Triglyceride: 200-499 mg/dLVery High Triglyceride: greater than or equal to 5OO mg/dL Cholesterol 189 <200 mg/dL [facility] Comment:Desirable Cholestero l: less than 200 mg/dLBorderline High Cholesterol: 200-239 mg/dLHigh Cholesterol: greater than 239 mg/dL LDL Cholesterol Calculated 122(H) <100 mg/dL [facility] Comment:Desirable LDL: less than 100 mg/dLNear Optimal/Above Optimal LDL: 110- 129 mg/dLBorderline High LDL: 130-159 mg/dLHigh LDL: 160-189 mg/dLVery High LDL: greater than or equal to 190 mg/dL HDL Cholesterol 47 >40 mg/dL [facility] Comment:Desirable HDL: great er than 40 mg/dL Note: This HDL assay may give artificially low results in patients with liver disease. Blood Venous blood specimen / Unknown 12/26/2023 12:46 PM EDT 12/26/2023 4:08 PM EDT us Tenisha Castillo MD LAB BLOOD ORDERABLES Final Res ult [facility] [address] [place] [phone] from Last 3 Months or Most Recently Relevant to Health Maintenance Insurance [facility] Care Teams Field Attendant Relationship Specialty Start Date End Date Tenisha Castillo MD [address] [place] [phone] PCP - General Family Medicine 10/05/23
--- OUTSIDE RECORDS SUMMARY | 2024-09-08 11:57 | XMS_ITS | Encounter Summary ---
Author Organization [employer] Address [address] [facility] 7t [place] [address] Care Team Providers Care Milk Truck Driver Name Role Phone Tenisha Castillo MD Primary Care Provider [phone] Reason for Referral * Consultation (Routine) - Closed Specialty Diagnoses / Procedures Referred By Contac t Referred To Contact Sleep Medicine Diagnoses LUPE (obstructive sleep apnea) Tenisha Castillo MD [address] [place] [address] Phone: tel: fax: Hailey Ledezma [address] [place] [address] Phone: tel: fax: Referral ID Status Reason Start Date Expiration Date V isits Requested Visits Authorized [id number] Closed Specialty Services Required 10/10/2023 10/09/2024 6 6 Encounter Details Date Type Department Care Team (Late st Contact Info) Description 10/10/2023 Orders Only [facility] [address] [place], [place] [phone] Tenisha Castillo MD [address] [place], [place] [phone] LUPE (obstructive sleep apnea) (Primary Dx) Social [...] clean catch procedure / Unknown 12/26/2023 12/26/2023 Comment:[facility] - 12/27/2023 11:16 AM EDT Urine Culture Report Result Urine Culture 50,000 to 100,000 cfu/ml Urine Culture Mixed bacterial donya characteristic of Urine Culture urogenital contamination. Specimen Source: Urine clean catch Tenisah Castillo MD LAB MICROBIOLOGY - GENERAL ORD ERABLES Final Result [facility] [address] [place] [phone] documented in this encounter Visit Diagnoses Diagnosis LUPE (obstructive sleep apnea)- Primary Obstructive sleep apnea (adult) (pediatric) documented in this encounter Care Teams Milk Truck Driver Relationship Specialty Start Date End Date Tenisha Castillo MD [address] [place] [phone] PCP - General Family Medicine 10/05/23 documented as of this encounter
--- OUTSIDE RECORDS SUMMARY | 2024-09-08 11:57 | XMS_ITS | Encounter Summary ---
Author Organization [facility] Address [address] [facility] 7t [place] [address] Care Team Providers Care Construction Consultant Name Role Phone Leslie Rios MD Primary Care Provider + Tenisha Castillo MD Primary Care Provider [phone] Encounter Details Date Type Department Care Team (Latest Contact Info) Description 01/09/2019 Abstract [facility] CONVERSIONS Dental, Provider, DDS Social [...] on filedocumented in this encounter Care Teams Construction Consultant Relationship Specialty Start Date End Date Leslie Rios MD [address] [place] [address] PCP - General Family Medicine 02/28/17 08/22/23 Tenisha Castillo MD [address] [place] [address] PCP - General Family Medicine 10/05/23 documented as of this encounter
--- OUTSIDE RECORDS SUMMARY | 2024-09-08 11:57 | XMS_ITS | Encounter Summary ---
Author Organization [employer] [facility] Address [address] [facility] 7t [place] [address] Care Team Providers Care Portfolio Specialist Name Role Phone Tenisha Castillo MD Primary Care Provider [phone] Encounter Details Date Type Department Care Team (Late st Contact Info) Description 11/01/2023 Telephone [facility] MEDICINE [address] [place], [place] [phone] Tenisha Castillo MD 230 [place], [place] [phone] Social History Tobacco Use Types Packs/Day Years [...] on filedocumented in this encounter Care Teams Portfolio Specialist Relationship Specialty Start Date End Date Tenisha Castillo MD 230 [place] [address] PCP - General Family Medicine 10/05/23 documented as of this encounter
--- OUTSIDE RECORDS SUMMARY | 2024-09-08 11:58 | XMS_ITS | Encounter Summary ---
Author Organization [employer] Address [address] [facility] 7t [place] [address] Care Team Providers Care Loom Changer Name Role Phone Tenisha Castillo MD Primary Care Provider [phone] Encounter Details Date Type Department Care Team ([facility] st Contact Info) Description 09/08/2024 9:30 AM EST Office Visit [facility] MEDICINE 230 [place], [place] [phone] Opal Pleitez MD 230 [place], [place] [phone] Hemoptysis (Primary Dx); Cough, unspecified type Social [...] the past 12 months, has t he [employer] gas, oil or water company threatened to [...] AM EST Narrative 09/08/2024 10:44 AM EST ?[facility] ?[address] ?[place] [address] ?XRay Report ? Signed ? Patient: Juan Diego Kiran,Yonatan Melvin ? MR#: [id number] ? : 1985 ?Acct:[id number] ? Age/Sex: 38 / M ?ADM Date: //25 ? Loc: HO.HHCX ? Attending Dr: Opal Pleitez MD ? Ordering Physician: Opal Pleitez MD ?? Date of Service: 09/08/24 ?? Procedure(s): XR chest 2V ?? Accession Number(s): [id number] ? cc: Opal Pleitez MD ? EXAMINATION: [...] DD/ 1010 ? TD/TT: 09/08/24 1020 ? Orthodontic Lab Technician: ? Procedure Note Millieter, Image - 09/08/2024 [place] [address] XRay Report Signed Patient: Yonatan Veliz MR#: [id number] : 1985Acct:[id number] Age/Sex: 38 / MADM Date: 09/08/24 Loc: HO.HHCX Attending Dr: Opal Pleitez MD Ordering Physician: Opal Pleitez MD Date of Service: 09/08/24 Procedure(s): XR chest 2V Accession Number(s): [id number] cc: Opal Pleitez MD EXAMINATION: XR CHEST [...] 09/08/24 1041 DD/ 1010 TD/TT: 09/08/24 1020 Orthodontic Lab Technician: Opal Pleitez MD IMG XR PROCEDURES Final Result * POCT Rapid Influenza B CLEMONS ID NOW (09/08/2024 9:24 AM EST) Influenza B Negative Negative, Indeterminate [facility] QC Media Lot # [id number] [facility] Lot# Expiration Date [facility] Swab 09/08/2024 9:24 AM EST Opal Pleitez MD POINT OF CARE TEST ENTER/EDIT OR DERABLES Final Result Performing Organization Address [facility] Co de Phone Number [facility] [address] [place] [phone] * POCT Rapid Influenza A CLEMONS ID NOW (09/08/2024 9:23 AM EST) Influenza A Negative Negative, Indeterminate [facility] QC Media Lot # [id number] [facility] Lot# Expiration Date [facility] Swab 09/08/2024 9:23 AM EST Opal Pleitez MD POINT OF CARE TEST ENTER/EDIT OR DERABLES Final Result Performing Organization Address [facility]/ZIP Co de Phone Number [facility] [address] [place] [phone] * POCT Rapid Covid-19 CLEMONS ID NOW (09/08/2024 9:19 AM EST) Coronavirus Antigen PCR Negative Negative, Indeterminate, None Detected, Invalid, Specimen unsatisfactory for evaluation, Weakly Positive QC Media Lot # [id number] Lot# Expiration Date Swab 09/08/2024 9:19 AM EST Opal Pleitez MD POINT OF CARE TEST ENTER/EDIT OR DERABLES Final Result documented in this encounter Visit Diagnoses Diagnosis Hemoptysis- Primary Cough, unspecified type documented in this encounter Additional Health Concerns Assessment Noted Time PHQ-9 Depression Total Score: 18 024 1:03 PM EDT documented as of this encounter Care Teams Loom Changer Relationship Specialty Start Date End Date Tenisha Castillo MD [address] [place] [phone] PCP - General Family Medicine 10/05/23 documented as of this encounter
--- OUTSIDE RECORDS SUMMARY | 2024-09-08 11:58 | XMS_ITS | Clinical Summary ---
Author Organization [address] [facility] Address 175 [place] [address] Phone Care Team Providers Care Pharmacy Coordinator Name Role Phone Leslie Rios MD Primary Care Provider [phone] Allergies Active Allergy Reactions Criticality Noted Date [...] Type Department Care Team Description 08/12/2024 [facility]phone [facility] 200 [place] [phone] Hailey Ledezma MD New Rx for CPAP machine 08/04/2024 Telephone [facility] [address] [facility] [address] [place] [phone] Janis Shi MA DME 06/13/2024 8:15 AM EST [facility] [address] [facility] [address] [place] [phone] Hailey Ledezma MD Obstructive sleep apnea syndrome (Primary Dx) 06/13/2024 [facility]phone [facility] [address] [facility] 200 [place] [phone] Janis Shi MA DME request (Order for CPAP replacement sent to [facility]. ) from Last 3 Months Social [...] AM EST Office Visit [facility] [place] [address] [facility] [address] [place] [phone] Lyndsey Frank MD 175 [facility] [address] [place] [address] 05/15/2025 2:45 PM EDT Office Visit [facility] - [place] [address] [facility] [address] [place] [phone] Hailey Ledezma MD [address] [facility] [address] [place] [address] Health Maintenance Due Date Last Done Comments [...] Most Recently Relevant to Health Maintenance Insurance [facility] Care Teams Pharmacy Coordinator Relationship Specialty Start Date End Date Leslie Rios MD [address] [place] [phone] PCP - General 10/02/22
--- OUTSIDE RECORDS SUMMARY | 2024-09-08 11:58 | XMS_ITS | Encounter Summary ---
Author Organization [employer] Address [address] [place] [address] Care Team Providers Care Superintendent Marine Name Role Phone Leslie Rios MD Primary Care Provider [phone] Reason for Visit * Reason Onset Date Comments New Rx for CPAP machine 08/12/2024 Encounter Details Date Type Department Care Team (Late st Contact Info) Description 08/12/2024 Telephone [facility] - [place] 175 [facility] [address] [place] [phone] Hailey Ledezma MD 175 [facility] 200 [place] [address] New Rx for CPAP machine Social History [...] error something about the motor is going. [facility] needs the below items to be faxed to them at [phone] -new RX with settings -copy of sleep study -clinical notes prior to sleep study documented in this encounter Plan of Treatment Upcoming Encounters Date Type Department Care Team (Late st Contact Info) Description 09/09/2024 11:15 AM EST Office Visit [facility] - [place] [address] [facility] [address] [place] [phone] Lyndsey Frank MD 175 [facility] 120 [place] [address] 05/15/2025 2:45 PM EDT Office Visit [facility] - [place] [address] [facility] [address] [place] [phone] Hailey Ledezma MD 175 [facility] 200 [place] [address] documented as of this encounter Visit Diagnoses Not on filedocumented in this encounter Care Teams Superintendent Marine Relationship Specialty Start Date End Date Leslie Rios MD 230 [facility] 1 [place] [address] PCP - General 10/02/22 documented as of this encounter
--- OUTSIDE RECORDS SUMMARY | 2024-09-08 11:58 | XMS_ITS | Encounter Summary ---
Author Organization [employer] [facility] Address [address] [facility] 7[address] [place] [address] Care Team Providers Care Loom Checker Name Role Phone Tenisha Castillo MD Primary Care Provider [phone] Reason for Visit * Reason Onset Date Comments Error 12/17/2023 Encounter Details Date Type Department Care Team ([facility] st Contact Info) Description 12/17/2023 Telephone [facility] MEDICINE 230 [place], [place] [phone] Tenisha Castillo MD 230 [place] [address] Error Social History Tobacco Use Types Packs/Day [...] on filedocumented in this encounter Care Teams Loom Checker Relationship Specialty Start Date End Date Tenisha Castillo MD [address] [place], [place] [phone] PCP - General Family Medicine 10/05/23 documented as of this encounter
--- OUTSIDE RECORDS SUMMARY | 2024-09-08 11:58 | XMS_ITS | Encounter Summary ---
Author Organization [employer] Address [address] [facility] [address] 7t [place] [address] Care Team Providers Care Disintegrator Feeder Name Role Phone Tenisha Castillo MD Primary Care Provider [phone] Encounter Details Date Type Department Care Team [...] documented as of this encounter Care Teams Disintegrator Feeder Relationship Specialty Start Date End Date Tenisha Castillo MD [address] [place] [address] PCP - General Family Medicine 10/05/23 documented as of this encounter
== END 2024-09-08 10:35 | disposition home or self-care (01) ==
LOC: HO.HHCL 10:34
PROVIDERS: Visit Provider Family Medicine
DX: Z13.89 Encounter for screening for other disorder (principal)

== ENCOUNTER 2024-09-11 10:52 | Outpatient (REF) | payer MEDICAID, SELFPAY ==
--- OUTSIDE RECORDS SUMMARY | 2024-09-11 12:56 | XMS_ITS | Encounter Summary ---
Author Organization [employer] Address [address] [facility] [address] 7[address] [place] [address] Care Team Providers Care Machine Chocolate Molder Name Role Phone Tenisha Castillo MD Primary Care Provider [phone] Encounter Details Date Type Department Care Team [...] as of this encounter Plan of Treatment Upcoming Encounters Date Type Department Care Team (Late st Contact Info) Description 12/03/2024 3:00 PM EDT Office Visit [facility] MEDICINE 230 [place] [address] Tenisha Castillo MD 230 [place] [address] documented as of this encounter Visit Diagnoses Not on filedocumented in this encounter Additional Health Concerns Assessment Noted Time PHQ-9 Depression Total Score: 18 024 1:03 PM EDT documented as of this encounter Care Teams Machine Chocolate Molder Relationship Specialty Start Date End Date Tenisha Castillo MD [address] [place] [phone] PCP - General Family Medicine 10/05/23 documented as of this encounter
--- OUTSIDE RECORDS SUMMARY | 2024-09-11 12:56 | XMS_ITS | Encounter Summary ---
Author Organization [employer] Address 75 [facility] 7t [place] [address] Care Team Providers Care Appeals Court Associate Justice Name Role Phone Tenisha Castillo MD Primary Care Provider [phone] Reason for Referral * PFT (Routine) - Authorized Specialty Diagnoses / Procedures Referred By Contac t Referred To Contact Diagnoses Cough, unspecified type Hemoptysis Abnormal CXR Procedures Pulmonary Function Test Opal Pleitez MD 230 [place] [address] Phone: tel: fax: [address] Phone: tel: fax: Referral ID Status Reason Start Date Expiration Date V isits Requested Visits Authorized [id number] Authorized 09/09/2024 09/09/2025 1 1 Encounter Details Date Type Department Care Team (Late st Contact Info) Description 09/09/2024 Orders Only [facility] MEDICINE 230 [place], [place] [phone] Opal Pleitez MD 230 [place] [address] Cough, unspecified type (Primary Dx); Hemoptysis; Abnormal CXR Social History Tobacco Use Types Packs/Day Years Used Date Smoking Tobacco: Never Smokeless Tobacco: Never Alcohol Use Standard Drinks/Week Comments Never 0 (1 standard drink = 0.6 oz pur e alcohol) Alcohol Answer Date Recorded Frequency of Alcohol Consumption Not on file 12/26/2023 Average Number of Drinks Not on file Frequency of Binge Drinking Not on file [...] Description 12/03/2024 3:00 PM EDT Office Visit [facility] MEDICINE 230 [place] [address] Tenisha Castillo MD 230 [place] [address] Scheduled Orders Name Type Priority Associated Diagnoses Orde r Schedule CBC auto differential Lab Routine Cough, unspecified type Hemoptysis Abnormal CXR Expected: 09/09/2024 (Approximate), Expires: 09/09/2025 Immunoglobulin E Lab Routine Cough, unspecified type Hemoptysis Abnormal CXR Expected: 09/09/2024 (Approximate), Expires: 09/09/2025 Pulmonary Function Test PFT Routine Cough, unspecified type Hemoptysis Abnormal CXR Expected: 09/09/2024, Expires: 03/09/2025 documented as of this encounter Visit Diagnoses Diagnosis Cough, unspecified type- Primary Hemoptysis Abnormal CXR Nonspecific (abnormal) findings on radiological and other examination of lung field documented in this encounter Additional Health Concerns Assessment Noted Time PHQ-9 Depression Total Score: 18 12/25/ 024 1:03 PM EDT documented as of this encounter Care Teams Appeals Court Associate Justice Relationship Specialty Start Date End Date Tenisha Castillo MD [address] [place] [phone] PCP - General Family Medicine 10/05/23 documented as of this encounter
--- OUTSIDE RECORDS SUMMARY | 2024-09-11 12:56 | XMS_ITS | Encounter Summary ---
Author Organization [employer] [facility] Address [address] [facility] 7t [place] [address] Care Team Providers Care Seismographer Name Role Phone Tenisha Castillo MD Primary Care Provider [phone] Encounter Details Date Type Department Care Team (Late st Contact Info) Description 11/01/2023 Telephone [facility] MEDICINE [address] [place] [address] [phone] Tenisha Castillo MD [address] [place] [phone] Social History Tobacco Use Types Packs/Day Years [...] Description 12/03/2024 3:00 PM EDT Office Visit [facility] MEDICINE [address] [place] [phone] Tenisha Castillo MD [address] [place] [address] [phone] documented as of this encounter Visit Diagnoses Not on filedocumented in this encounter Care Teams Seismographer Relationship Specialty Start Date End Date Tenisha Castillo MD [address] [place] [address] [phone] PCP - General Family Medicine 10/05/23 documented as of this encounter
--- OUTSIDE RECORDS SUMMARY | 2024-09-11 12:56 | XMS_ITS | Encounter Summary ---
Author Organization [employer] Address [address] [facility] 7t [place] [address] Care Team Providers Care Cycle Touring Guide Name Role Phone Tenisha Castillo MD Primary Care Provider [phone] Reason for Visit * Reason Onset Date Comments Results 09/09/2024 Encounter Details Date Type Department Care Team ([facility] Contact Info) Description 09/09/2024 Telephone [facility] MEDICINE 230 [place], [place] [phone] Chioma Jeffery, RN 230 [place] [address] Results Social History Tobacco Use Types Packs/Day Years [...] the past 12 months, has t he [employer], gas, oil or water [employer] threatened to shut off services in your home? No 12/26/2023 Depression Answer Date Recorded Patient Health Questionnaire-2 Score 4 12/26/2023 Sex and Gender Information Value Date Recorded Sex Assigned at Male 05/15/2022 10:30 AM EDT Legal Sex Male 10:30 AM EDT Gender Identity Male 05/15/2022 10:30 AM EDT Sexual Orientation Bisexual 05/15/2022 10 :30 AM EDT documented as of this encounter Miscellaneous Notes * Telephone Encounter - Opal Pleitez MD - 09/09/2024 5:57 PM EST ordered * Telephone Encounter - Chioma Jeffery RN - 09/09/2024 11:36 AM EST T/C placed to pt re below imaging results and POC. Informed CXR did not show pneumonia which is good. It did show possible interstitial lung disease or asthma. Pt reports taking medications as Rxd. Feeling much better , thinks the nasal spray helped the most. Still has productive cough but it has improved, he feels like he can breathe better. Pt agreeable to labs and PFT to further evaluate. Would prefer it be sent to [facility]. Informed labs he can go to [facility] orhere, no appt needed to have done. PFT they will call him to schedule. Advised to call if Sx worsenor he needs anything. Pt verbalized understanding and denied having any further questions or concerns at this time. * Telephone Encounter - Chioma Jeffery RN - 09/09/2024 11:31 AM EST ----- Message from Opal Pleitez MD sent at 09/09/2024 9:16 AM EST ----- Please call patient for status check. CXR does not show pneumonia, but suggests possible interstitial lung disease or asthma. Please call for status check and ask if he has started prescribed medications. If he is still symptomatic, will prescribe albuterol inhaler. I would like to order PFT and further lab. Please ask if he would like to have the test in [place] or in [place]. Thank you documented in this encounter Plan of Treatment Upcoming Encounters Date Type Department Care Team (Late st Contact Info) Description 12/03/2024 3:00 PM EDT Office Visit [facility] MEDICINE [address] [place] [address] Tenisha Castillo MD [address] [place] [address] documented as of this encounter Visit Diagnoses Not on filedocumented in this encounter Additional Health Concerns Assessment Noted Time PHQ-9 Depression Total Score: 18 024 1:03 PM EDT documented as of this encounter Care Teams Cycle Touring Guide Relationship Specialty Start Date End Date Tenisha Castillo MD [address] [place] [address] PCP - General Family Medicine 10/05/23 documented as of this encounter
--- OUTSIDE RECORDS SUMMARY | 2024-09-11 12:56 | XMS_ITS | Encounter Summary ---
Author Organization [employer] [facility] Address [address] [place] [address] 7 [place] [address] Care Team Providers Care Diaper Machine Tender Name Role Phone Tenisha Castillo MD Primary Care Provider [phone] Reason for Visit * Reason Onset Date Comments Error 12/17/2023 Encounter Details Date Type Department Care Team (Late Contact Info) Description 12/17/2023 Telephone [facility] MEDICINE [address] [place] [address] [phone] Tenisha Castillo MD [address] [place] [address] [phone] Error Social History Tobacco Use Types Packs/Day [...] Encounters Date Type Department Care Team (Late Contact Info) Description 12/03/2024 3:00 PM EDT Office Visit [facility] MEDICINE [address] [place] [address] [phone] Tenisha Castillo MD [address] [place] [address] [phone] documented as of this encounter Visit Diagnoses Not on filedocumented in this encounter Care Teams Diaper Machine Tender Relationship Specialty Start Date End Date Tenisha Castillo MD [address] [place] [phone] PCP - General Family Medicine 10/05/23 documented as of this encounter
--- OUTSIDE RECORDS SUMMARY | 2024-09-11 12:56 | XMS_ITS | Clinical Summary ---
Author Organization [employer] Address [address] [facility] 7t [place] [address] Care Team Providers Care Disaster Or Damage Control Specialist Name Role Phone Tenisha Castillo MD Primary Care Provider Allergies No known active allergies Medications * [...] PM EST): Going to bariatric program at [facility], is going to stop because he [...] followup here Diagnosed as a child in [place] Occurring few times a month, will refer [...] Encounters Date Type Department Care Team Description 09/09/2024 Orders Only [facility] [address] [place] [phone] Opal Pleitez MD Cough, unspecified type (Primary Dx); Hemoptysis; Abnormal CXR 09/09/[address] [phone] Chioma Jeffery RN Results 09/08/2024 9:30 AM EST Office Visit [address] [address] Opal Pleitez MD Hemoptysis (Primary Dx); Cough, [...] 09/08/2024 9:11 AM EST Plan of Treatment Upcoming Encounters Date Type Department Care Team (Late st Contact Info) Description 12/03/2024 3:00 PM EDT Office Visit [facility] [address] [place] [address] Tenisha Castillo MD [address] [place] [address] Health Maintenance Due Date Last Done Comments [...] Procedure Name Priority Date/Time Associated Diagnosis Comments T-SPOT(R).TB Routine 09/08/2024 10:36 AM EST Cough, unspecified type Hemoptysis XR CHEST 2 VIEWS Routine 09/08/2024 10:1 [...] Recently Relevant to Health Maintenance Results * T-SPOT??.TB (09/08/2024 10:36 AM EST) [facility] T Spot TB Negative Negative [facility] Comment:A negative test resu lt does not exclude the possibilityof exposure to or infection with Mycobacteriumtuberculosis (M. tuberculosis). Patients with recentexposure to TB infected individuals exhibiting anegative T-SPOT.TB result should be considered forretesting within 6 weeks or if other relevant clinicalsymptoms indicate. Results from T-SPOT.TB testing mustbe used in conjunction with each individual'sepidemiological history, current medical status,and results of other diagnostic evaluations.The T-SPOT.TB test is qualitative and results arereported as positive, borderline, or negative, giventhat the test controls perform as expected. In linewith the Centers for Disease Control and Prevention's2010 recommendation to report quantitative measurementsalongside the qualitative result, the laboratoryprovides spot counts for informational purposes only.The T-SPOT.TB test should not be interpreted as aquantitative test. TS PANEL A 2 [facility] TS PANEL B 0 [facility] Negative Control Passed [facility] Positive Control Passed [facility] Comment:For additional infor andi, please refer tohttp://education.[employer]/faq/OAB429(This link is being provided for informational/educational purposes only.)THIS TEST WAS PERFORMED AT:[employer]/MENJIVAR [id number] [place] [address]MEPTHWFDANNY RENTERIA MD,PHD 09/08/2024 10:3 6 AM EST 09/08/2024 11:12 AM EST us Opal Pleitez MD LAB BLOOD ORDERABLES Final Resul t [facility] [address] [place] [address] [phone] * XR Chest 2 Views (09/08/2024 10:10 AM EST) Anatomical Region Laterality Modality Chest Radiographic Peg ging 09/08/2024 10:1 0 AM EST Narrative 09/08/2024 10:44 AM EST ?[facility] ?[address] ?[place] [address] ?XRay Report ? Signed ? Patient: Jose Alfredo,Juan Daniel ? MR#: [id number] ? : 1985 ?Acct:[id number] ? Age/Sex: 38 / M ?ADM Date: 09/08/24 ? Loc: HO.HHCX ? Attending Dr: Opal Pleitez MD ? Ordering Physician: Opal Pleitez MD ?? Date of Service: 09/08/24 ?? Procedure(s): XR chest 2V ?? Accession Number(s): [id number] ? cc: Opal Pleitez MD ? EXAMINATION: [...] DD/ 1010 ? TD/TT: 09/08/24 1020 ? Forklift Driver: ? Procedure Note Donotuseinterpreter, Image - 09/08/2024 [facility] [address] [place] [address] XRay Report Signed Patient: Yonatan Veliz MR#: [id number] : 1985Acct:[id number] Age/Sex: 38 / MADM Date: 09/08/24 [facility] Dr: Opal Pleitez MD Ordering Physician: Opal Pleitez MD Date of Service: 09/08/24 Procedure(s): XR chest 2V Accession Number(s): [id number] cc: Opal Pleitez MD EXAMINATION: XR CHEST [...] 09/08/24 1041 DD/ 1010 TD/TT: 09/08/24 1020 Forklift Driver: us Opal Pleitez MD IMG XR PROCEDURES Final Result * POCT Rapid Influenza B CLEMONS ID NOW (09/08/2024 9:24 AM EST) Influenza B Negative Negative, Indeterminate [facility] QC Media Lot # [id number] [facility] Lot# Expiration Date [id number] [facility] Swab 09/08/2024 9:24 AM EST Opal Pleitez MD POINT OF CARE TEST ENTER/EDIT OR DERABLES Final Result Performing Organization Address [facility]/ZIP Co de Phone Number [facility] [address] [place] [phone] * POCT Rapid Influenza A CLEMONS ID NOW (09/08/2024 9:23 AM EST) Influenza A Negative Negative, Indeterminate [facility] QC Media Lot # [id number] [facility] Lot# Expiration Date [id number] [facility] Swab 09/08/2024 9:23 AM EST Opal Pleitez MD POINT OF CARE TEST ENTER/EDIT OR DERABLES Final Result Performing Organization Address [facility] de Phone Number [facility] [address] [place] [phone] * POCT Rapid Covid-19 CLEMONS ID NOW (09/08/2024 9:19 AM EST) Coronavirus Antigen PCR Negative Negative, Indeterminate, None Detected, Invalid, Specimen unsatisfactory for evaluation, Weakly Positive QC Media Lot # [id number] Lot# Expiration Date Swab 09/08/2024 9:19 AM EST Opal Pleitez MD POINT OF CARE TEST ENTER/EDIT OR DERABLES Final Result * Hepatitis C Antibody with Reflex to HCV, RNA, Quantitative, Real-Time PCR (12/26/2023 12:46 PM EDT) Hepatitis C Antibody Nonreactive Nonreactive [facility] Comment:Antibodies to HCV no t detected; does not exclude early acuteHCV infection. Blood Venous blood specimen / Unknown 12/26/2023 12:46 PM EDT 12/26/2023 4:08 PM EDT Tenisha Castillo MD LAB BLOOD ORDERABLES Final Res ult Performing Organization Address City/[facility]/ZIP Co de Phone Number [facility] [address] [place] [phone] [phone] * HIV-1/2 Antigen and Antibodies, Fourth Generation, with Reflexes (12/26/2023 12:46 PM EDT) HIV AB/AG Nonreactive Nonreactive [facility] Comment:HIV-1 p24 Ag and/or HIV-1/HIV-2 Ab not detected.A test result that is nonreactive does not exclude thepossibility of exposure to or infection with HIV-1 and/orHIV-2. Nonreactive results in this assay for individualswith prior exposure to HIV-1 and/or HIV-2 may be due toantigen and antibody levels that are below the limit ofdetection of this assay.The [employer] HIV Ag/Ab Combo assay result andsupplemental assay results should be interpreted inconjunction with the patient's clinical presentation,history and other laboratory results. If the results areinconsistent with clinical evidence, additional testing issuggested to confirm the result. Blood Venous blood specimen / Unknown 12/26/2023 12:46 PM EDT 12/26/2023 4:08 PM EDT Tenisha Castillo MD LAB BLOOD ORDERABLES Final Res ult Performing Organization Address [facility]/ZIP Co de Phone Number [facility] [address] [place] [phone] * (ABNORMAL) Lipid Panel, Standard (12/26/2023 12:46 PM EDT) Triglycerides 100 <150 mg/dL [facility] Comment:Desirable Triglyceri de: less than 150 mg/dLBorderline High Triglyceride 150-199 mg/dLHigh Triglyceride: 200-499 mg/dLVery High Triglyceride: greater than or equal to 5OO mg/dL Cholesterol 189 <200 mg/dL [facility] Comment:Desirable Cholestero l: less than 200 mg/dLBorderline High Cholesterol: 200-239 mg/dLHigh Cholesterol: greater than 239 mg/dL LDL Cholesterol Calculated 122(H) <100 mg/dL [facility] Comment:Desirable LDL: less than 100 mg/dLNear Optimal/Above Optimal LDL: 110- 129 mg/dLBorderline High LDL: 130-159 mg/dLHigh LDL: 160-189 mg/dLVery High LDL: greater than or equal to 190 mg/dL HDL Cholesterol 47 >40 mg/dL [facility] Comment:Desirable HDL: great er than 40 mg/dL Note: This HDL assay may give artificially low results in patients with liver disease. Blood Venous blood specimen / Unknown 12/26/2023 12:46 PM EDT 12/26/2023 4:08 PM EDT us Tenisha Castillo MD LAB BLOOD ORDERABLES Final Res ult [facility] [address] [place] [phone] from Last 3 Months or Most Recently Relevant to Health Maintenance [place] [address] [place] [address] Care Teams Disaster Or Damage Control Specialist Relationship Specialty Start Date End Date Tenisha Castillo MD [address] [place] [phone] PCP - General Family Medicine 10/05/23
--- OUTSIDE RECORDS SUMMARY | 2024-09-11 12:56 | XMS_ITS | Clinical Summary ---
Author Organization [address] [facility] Address [address] [place] [address] Phone Care Team Providers Care Warper Fixer Name Role Phone Leslie Rios MD Primary Care Provider [phone] Allergies Active Allergy Reactions Criticality Noted Date [...] Type Department Care Team Description [facility] [address] [phone] Hailey Ledezma MD New Rx for CPAP machine 08/04/2024 Telephone [facility] [address] [phone] Janis Shi MA DME 06/13/2024 8:15 AM EST Office Visit [address] [phone] Hailey Ledezma MD Obstructive sleep apnea syndrome (Primary Dx) 06/13/[address] [phone] Janis Shi MA DME request (Order for CPAP replacement sent to [facility]. ) from Last 3 Months Social [...] Care Team (Late st Contact Info) Description 05/15/2025 2:45 PM EDT Office Visit [address] [phone] Hailey Ledezma MD 175 [facility] [address] [place] [address] Health Maintenance Due Date Last Done Comments [...] Results * Polysomnography (09/04/2024 11:35 AM EST) us Historical Provider SLEEP CENTER ORDERABLES F inal Result * Depression Screening (09/03/2023) Depression Screening Abstracted us Historical Provider HEALTH MAINTENANCE Final Result from Last 3 Months or Most Recently Relevant to Health Maintenance Insurance [facility] Care Teams Warper Fixer Relationship Specialty Start Date End Date Leslie Rios MD [address] [place] [phone] PCP - General 10/02/22
--- OUTSIDE RECORDS SUMMARY | 2024-09-11 12:56 | XMS_ITS | Encounter Summary ---
Author Organization [facility] Address [address] [facility] 7t [place] [address] Care Team Providers Care Meat Grinder Name Role Phone Leslie Rios MD Primary Care Provider + Tenisha Castillo MD Primary Care Provider [phone] Encounter Details Date Type Department Care Team (Latest Contact Info) Description 01/09/2019 Abstract [facility] CONVERSIONS Dental, Provider, DDS Social History Tobacco [...] Description 12/03/2024 3:00 PM EDT Office Visit [facility] [address] [place] [address] Tenisha Castillo MD [address] [place] [address] documented as of this encounter Visit Diagnoses Not on filedocumented in this encounter Care Teams Meat Grinder Relationship Specialty Start Date End Date Leslie Rios MD [address] [place] [address] PCP - General Family Medicine 02/28/17 08/22/23 Tenisha Castillo MD [address] [place] [address] PCP - General Family Medicine 10/05/23 documented as of this encounter
--- OUTSIDE RECORDS SUMMARY | 2024-09-11 12:56 | XMS_ITS | Encounter Summary ---
Author Organization [employer] Address [address] [facility] 7t [place] [address] Care Team Providers Care Software Developer Intern Name Role Phone Tenisha Castillo MD Primary Care Provider [phone] Encounter Details Date Type Department Care Team ([facility] st Contact Info) Description 09/08/2024 9:30 AM EST Office Visit [facility] [address] [place], [place] [phone] Opal Pleitez MD [address] [place], [place] [phone] Hemoptysis (Primary Dx); Cough, unspecified type Social [...] the past 12 months, has t he [employer], gas, oil or water company threatened to [...] Description 12/03/2024 3:00 PM EDT Office Visit [facility] [address] [place] [address] Tenisha Castillo MD [address] [place] [address] documented as of this encounter Procedures Procedure [...] type documented in this encounter Results * T-SPOT??.TB (09/08/2024 10:36 AM EST) [facility] T Spot TB Negative Negative [facility] Comment:A negative test resu lt does [...] as aquantitative test. TS PANEL A 2 [facility] TS PANEL B 0 [facility] Negative Control Passed [facility] Positive Control Passed [facility] Comment:For additional infor andi, please refer tohttp://education.[employer]/faq/OJM962(This link is being provided for informational/educational purposes only.)THIS TEST WAS PERFORMED AT:[employer] [id number] [place] [address]UFJHGRYDANNY RENTERIA MD,PHD 09/08/2024 10:3 6 AM EST 09/08/2024 11:12 AM EST Opal Pleitez MD LAB BLOOD ORDERABLES Final Resul t [facility] [address] [place] [phone] [phone] * XR Chest 2 Views (09/08/2024 10:10 AM EST) Anatomical Region Laterality Modality Chest Radiographic Peg ging 09/08/2024 10:1 0 AM EST Narrative 09/08/2024 10:44 AM EST ?[facility] ?[address] ?[place] [address] ?XRay Report ? Signed ? Patient: Jose Alfredo,Yonatan Melvin ? MR#: [id number] ? : 1985 ?Acct:[id number] ? Age/Sex: 38 / M ?ADM Date: 02/24/25 ? Loc: HO.HHCX ? Attending Dr: Opal Pleitez MD ? Ordering Physician: Opal Pleitez MD ?? Date of Service: 09/08/24 ?? Procedure(s): XR chest 2V ?? Accession Number(s): [id number] ? cc: Opal Pleitez MD ? EXAMINATION: [...] DD/ 1010 ? TD/TT: 09/08/24 1020 ? Sound Printer: ? Procedure Note Chris, Estrella - 09/08/[address] [address] XRay Report Signed Patient: Yonatan Veliz MR#: [id number] : 1985Acct:[id number] Age/Sex: 38 / MADM Date: 09/08/24 Loc: HO.HHCX Attending Dr: Opal Pleitez MD Ordering Physician: Opal Pleitez MD Date of Service: 09/08/24 Procedure(s): XR chest 2V Accession Number(s): [id number] cc: Opal Pleitez MD EXAMINATION: XR CHEST [...] Timbo Osullivan MD 09/08/2024 10:41 AM EST RP Dictated By: Timbo Mcnamara MD Signed By: <Electronically signed by Timbo Jeffery MDin OV> 09/08/24 1041 DD/ 1010 TD/TT: 09/08/24 1020 Sound Printer: Opal Pleitez MD IMG XR PROCEDURES Final Result * POCT Rapid Influenza B CLEMONS ID NOW (09/08/2024 9:24 AM EST) Influenza B Negative Negative, Indeterminate [facility] QC Media Lot # [id number] [facility] Lot# Expiration Date [facility] Swab 09/08/2024 9:24 AM EST Opal Pleitez MD POINT OF CARE TEST ENTER/EDIT OR DERABLES Final Result Performing Organization Address City/[facility] Co de Phone Number [facility] [address] [place] [phone] * POCT Rapid Influenza A CLEMONS ID NOW (09/08/2024 9:23 AM EST) Influenza A Negative Negative, Indeterminate [facility] QC Media Lot # [id number] [facility] Lot# Expiration Date [facility] Swab 09/08/2024 9:23 AM EST Opal Pleitez MD POINT OF CARE TEST ENTER/EDIT OR DERABLES Final Result Performing Organization Address [facility] Co de Phone Number [facility] [address] [place] [phone] * POCT Rapid Covid-19 CLEMONS ID NOW (09/08/2024 9:19 AM EST) Coronavirus Antigen PCR Negative Negative, Indeterminate, None Detected, Invalid, Specimen unsatisfactory for evaluation, Weakly Positive QC Media Lot # [id number] Lot# Expiration Date [id number] Swab 09/08/2024 9:19 AM EST us Opal Pleitez MD POINT OF CARE TEST ENTER/EDIT OR DERABLES Final Result documented in this encounter Visit Diagnoses Diagnosis Hemoptysis- Primary Cough, unspecified type documented in this encounter Additional Health Concerns Assessment Noted Time PHQ-9 Depression Total Score: 18 024 1:03 PM EDT documented as of this encounter Care Teams Software Developer Intern Relationship Specialty Start Date End Date Tenisha Castillo MD [address] [place] [address] PCP - General Family Medicine 10/05/23 documented as of this encounter
--- OUTSIDE RECORDS SUMMARY | 2024-09-11 12:56 | XMS_ITS | Encounter Summary ---
Author Organization [employer] Address [address] [place] [address] Care Team Providers Care Clerical Associate Name Role Phone Leslie Rios MD Primary Care Provider [phone] Reason for Visit * Reason Onset Date Comments New Rx for CPAP machine 08/12/2024 Encounter Details Date Type Department Care Team (Late st Contact Info) Description 08/12/2024 Telephone Pulmonolgy - [place] [address] [facility] [address] [place] [phone] Hailey Ledezma MD 175 [facility] [address] [place] [address] New Rx for CPAP machine Social History [...] error something about the motor is going. [facility] needs the below items to be faxed to them at [phone] -new RX with settings -copy of sleep study -clinical notes prior to sleep study documented in this encounter Plan of Treatment Upcoming Encounters Date Type Department Care Team (Late st Contact Info) Description 05/15/2025 2:45 PM EDT Office Visit [facility] - [place] [address] [facility] [address] [place] [phone] Hailey Ledezma MD 175 [facility] [address] [place] [address] documented as of this encounter Visit Diagnoses Not on filedocumented in this encounter Care Teams Clerical Associate Relationship Specialty Start Date End Date Leslie Rios MD 230 [facility] 1 [place] [phone] PCP - General 10/02/22 documented as of this encounter
--- OUTSIDE RECORDS SUMMARY | 2024-09-11 12:56 | XMS_ITS | Encounter Summary ---
Author Organization [employer] Address 75 [facility] 7t [place] [address] Care Team Providers Care Tonsorial Artist Name Role Phone Tenisha Castillo MD Primary Care Provider [phone] Reason for Referral * Consultation (Routine) - Closed Specialty Diagnoses / Procedures Referred By Contac t Referred To Contact Sleep Medicine Diagnoses LUPE (obstructive sleep apnea) Tenisha Castillo MD [address] [place] [address] Phone: tel: fax: Hailey Ledezma [address] [facility] [address] [place] [address] Phone: tel: fax: Referral ID Status Reason Start Date Expiration Date V isits Requested Visits Authorized [id number] Closed Specialty Services Required 10/10/2023 10/09/2024 6 6 Encounter Details Date Type Department Care Team (Late st Contact Info) Description 10/10/2023 Orders Only [facility] [address] [place], [place] [phone] Tenisha Castillo MD [address] [place], [place] [phone] LUPE (obstructive sleep apnea) (Primary Dx) Social [...] Description 12/03/2024 3:00 PM EDT Office Visit [facility] [address] [place] [address] Tenisha Castillo MD [address] [place] [address] Scheduled Referrals Name Type Priority Associated Diagnoses [...] clean catch procedure / Unknown 12/26/2023 12/26/2023 Comment:[facility] - 12/27/2023 11:16 AM EDT Urine Culture Report Result Urine Culture 50,000 to 100,000 cfu/ml Urine Culture Mixed bacterial donya characteristic of Urine Culture urogenital contamination. Specimen Source: Urine clean catch Tenisha Castillo MD LAB MICROBIOLOGY - GENERAL ORD ERABLES Final Result [facility] [address] [place] [phone] [phone] documented in this encounter Visit Diagnoses Diagnosis LUPE (obstructive sleep apnea)- Primary Obstructive sleep apnea (adult) (pediatric) documented in this encounter Care Teams Tonsorial Artist Relationship Specialty Start Date End Date Tenisha Castillo MD [address] [place] [address] PCP - General Family Medicine 10/05/23 documented as of this encounter
--- OUTSIDE RECORDS SUMMARY | 2024-09-11 12:56 | XMS_ITS | Encounter Summary ---
Author Organization [employer] [facility] Address [address] [facility] 7t [place] [address] Care Team Providers Care Community Development Director Name Role Phone Leslie Rios MD Primary Care Provider + Tenisha Castillo MD Primary Care Provider [phone] Encounter Details Date Type Department Care Team (Latest Contact Info) Description 08/25/2019 Abstract [facility] CONVERSIONS Dental, Provider, DDS Social History [...] Description 12/03/2024 3:00 PM EDT Office Visit [facility] [address] [place] [address] Tenisha Castillo MD [address] [place] [address] documented as of this encounter Visit Diagnoses Not on filedocumented in this encounter Care Teams Community Development Director Relationship Specialty Start Date End Date Leslie Rios MD [address] [place] [address] PCP - General Family Medicine 02/28/17 08/22/23 Tenisha Castillo MD [address] [place] [address] PCP - General Family Medicine 10/05/23 documented as of this encounter
[2024-09-11 13:12] LABS: MANUAL DIFF FLAG NO
[2024-09-11 13:17] LABS: Basophils Percent Auto 0.4 % (0-2); Eosinophils Absolute Auto 0.1 X10*3/uL (0.0-0.4); Eosinophils Percent Auto 1.9 % (0-4); Hematocrit 48.4 % (42.0-52.0); Hemoglobin 15.7 g/dl (14.0-18.0); Imm Gran Abs Auto 0.04 X10*3/uL (0.00-0.03); Imm Gran Pct Auto 0.7 % (0.0-0.4); Lymphocytes Absolute Auto 1.7 X10*3/uL (1.2-4.9); Lymphocytes Percent Auto 29.9 % (20-40); Mean Corpuscular HGB Conc 32.4 g/dl (31.0-36.0); Mean Corpuscular Hemoglobin 28.1 pg (27.0-33.0); Mean Corpuscular Volume 86.7 fL (80.0-98.0); Mean Platelet Volume 9.8 fL (9.4-12.4); Monocytes Absolute Auto 0.5 X10*3/uL (0.1-1.2); Monocytes Percent Auto 7.9 % (2-11); Neutrophils Absolute Auto 3.4 x10*3/uL (2.0-8.3); Neutrophils Percent Auto 59.2 % (45-73); Platelet Count 362 X10*3/uL (160-400); Red Blood Count 5.58 X10*6/uL (4.60-5.80); Red Cell Distribution Width 13.2 % (11.0-16.0); White Blood Count 5.7 X10*3/uL (4.8-10.8)
[2024-09-12 08:48] LABS: Immunoglobulin E 44 kU/L (<OR=114)
== END 2024-09-11 10:53 | disposition home or self-care (01) ==
LOC: HO.HHCL 10:52
PROVIDERS: Visit Provider Family Medicine
DX: R05.9 Cough, unspecified (principal); R04.2 Hemoptysis; R93.89 Abnormal findings on diagnostic imaging of other specified body structures
CPT/HCPCS: 36415; 82785; 85025

== ENCOUNTER 2024-10-16 10:41 | Outpatient (REF) | payer OTHER, SELFPAY ==
--- NOTE | 2024-10-16 11:00 | PFT_ITS ---
Flows: FEV1: 85 % of predicted at 3.63 L FVC: 87 % of predicted at 4.66 L FEV1/FVC: 78 % Bronchodilator response: Present Volumes: Total lung capacity: 83 % of predicted at 6.06 L Residual volume: 98 % of predicted at 1.61 L Slow vital capacity: 79 % of predicted at 4.46 L Expiratory reserve volume: 46 % of predicted at 0.75 L Diffusion capacity: Normal Impression: No obstructive or restrictive ventilatory defect. Positive bronchodilator response. Decreased expiratory reserve volume suggests extrathoracic restriction likely secondary to abdominal obesity. MTDD
[2024-10-16 11:49] VITALS: PULSE 86; O2SAT 97
--- OUTSIDE RECORDS SUMMARY | 2024-10-16 11:51 | XMS_ITS | Encounter Summary ---
Author Organization [employer] Address 75 [facility] 7t [place] [address] Care Team Providers Care Tax Revenue Officer Name Role Phone Tenisha Castillo MD Primary Care Provider [phone] Reason for Referral * PFT (Routine) - Authorized Specialty Diagnoses / Procedures Referred By Contac t Referred To Contact Diagnoses Cough, unspecified type Hemoptysis Abnormal CXR Procedures Pulmonary Function Test Opal Pleitez MD [address] [place] [address] Phone: tel: fax: [address] Phone: tel: fax: Referral ID Status Reason Start Date Expiration Date V isits Requested Visits Authorized [id number] Authorized 09/09/2024 09/09/2025 1 1 Encounter Details Date Type Department Care Team (Late st Contact Info) Description 09/09/2024 Orders Only [facility] [address] [place], [place] [phone] Opal Pleitez MD [address] [place] [address] Cough, unspecified type (Primary Dx); [...] Description 12/03/2024 3:00 PM EDT Office Visit [facility] [address] [place] [address] Tenisha Castillo MD [address] [place] [address] Scheduled Orders Name Type Priority Associated Diagnoses Orde r Schedule Pulmonary Function Test PFT Routine Cough, unspecified type Hemoptysis Abnormal CXR Expected: 09/09/2024, Expires: 03/09/2025 documented as of this encounter Procedures Procedure Name Priority Date/Time Associated Diagnosis Comments CBC WITH AUTO DIFFERENTIAL Routine 09/11/2024 10:54 AM EST Cough, unspecified type Hemoptysis Abnormal CXR IMMUNOGLOBULIN E Routine 09/11/2024 10:5 4 AM EST Cough, unspecified type Hemoptysis Abnormal CXR documented in this encounter Results * Immunoglobulin E (09/11/2024 10:54 AM EST) Pathologist [facility] Immunoglobulin E 44 <RN=936 kU/L [facility] Comment:THIS TEST WAS PERFOR MED AT:[employer] [address] [phone] COREY MD Blood Venous blood specimen / Unknown 09/11/2024 10:54 AM EST 09/11/2024 1:06 PM EST us Opal Pleitez MD LAB BLOOD ORDERABLES Final Resul t [facility] [address] [place] [phone] * (ABNORMAL) CBC auto differential (09/11/2024 10:54 AM EST) Pathologist [facility] White Blood Count 5.7 4.8 - 10.8 X10*3/uL [facility] Red Blood Count 5.58 4.60 - 5.80 X10*6/uL [facility] Hemoglobin 15.7 14.0 - 18.0 g/dl [facility] Hematocrit 48.4 42.0 - 52.0 % [facility] Mean Corpuscular Volume 86.7 80.0 - 98.0 fL [facility] Mean Corpuscular Hemoglobin 28.1 27.0 - 33.0 pg [facility] Mean Corpuscular HGB Conc 32.4 31.0 - 36.0 g/dl [facility] Red Cell Distribution Width 13.2 11.0 - 16.0 % [facility] Platelet Count 362 160 - 400 X10*3/uL [facility] Mean Platelet Volume 9.8 9.4 - 12.4 fL [facility] Neutrophils Percent Auto 59.2 45 - 73 % [facility] Imm Gran Pct Auto 0.7(H) 0.0 - 0.4 % [facility] Lymphocytes Percent Auto 29.9 20 - 40 % [facility] Monocytes Percent Auto 7.9 2 - 11 % [facility] Eosinophils Percent Auto 1.9 0 - 4 % [facility] Basophils Percent Auto 0.4 0 - 2 % [facility] NRBC Pct Auto 0.0 0.0 - 0.2 /100WBC [facility] Neutrophils Absolute Auto 3.4 2.0 - 8.3 x10*3/uL [facility] Imm Gran Abs Auto 0.04(H) 0.00 - 0.03 X10*3/uL [facility] Lymphocytes Absolute Auto 1.7 1.2 - 4.9 X10*3/uL [facility] Monocytes Absolute Auto 0.5 0.1 - 1.2 X10*3/uL [facility] Eosinophils Absolute Auto 0.1 0.0 - 0.4 X10*3/uL [facility] Basophils Absolute Auto 0.0 0.0 - 0.2 X10*3/uL [facility] NRBC Abs Auto 0.000 0.0 - 0.012 X10*3/uL [facility] Blood Venous blood specimen / Unknown 09/11/2024 10:54 AM EST 09/11/2024 1:06 PM EST us Opal Pleitez MD LAB BLOOD ORDERABLES Final Resul t [facility] [address] [place], [place] [phone] documented in this encounter Visit Diagnoses Diagnosis Cough, unspecified type- Primary Hemoptysis Abnormal CXR Nonspecific (abnormal) findings on radiological and other examination of lung field documented in this encounter Additional Health Concerns Assessment Noted Time PHQ-9 Depression Total Score: 18 024 1:03 PM EDT documented as of this encounter Care Teams Tax Revenue Officer Relationship Specialty Start Date End Date Tenisha Castillo MD [address] [place] [address] PCP - General Family Medicine 10/05/23 documented as of this encounter
--- OUTSIDE RECORDS SUMMARY | 2024-10-16 11:51 | XMS_ITS | Encounter Summary ---
Author Organization [employer] [facility] Address 75 [facility] 7 [place] [address] Care Team Providers Care Microelectronics Technician Name Role Phone Tenisha Castillo MD Primary Care Provider [phone] Reason for Visit * Reason Onset Date Comments Error 12/17/2023 Encounter Details Date Type Department Care Team (Late Contact Info) Description 12/17/2023 Telephone [facility] [address] [place] [address] [phone] Tenisha Castillo MD [address] [place] [phone] Error Social History Tobacco Use Types Packs/Day [...] EDT Office Visit [facility] [address] [place] [address] [phone] Tenisha Castillo MD [address] [place] [address] [phone] documented as of this encounter Visit Diagnoses Not on filedocumented in this encounter Care Teams Microelectronics Technician Relationship Specialty Start Date End Date Tenisha Castillo MD [address] [place] [phone] PCP - General Family Medicine 10/05/23 documented as of this encounter
--- OUTSIDE RECORDS SUMMARY | 2024-10-16 11:51 | XMS_ITS | Clinical Summary ---
Author Organization [employer] Address 75 [facility] 7t [place] [address] Care Team Providers Care Topology Professor Name Role Phone Tenisha Castillo MD Primary Care Provider [phone] Allergies No known active allergies Medications * This document contains information received from the source organization and may not represent a complete record from that organization. Acetaminophen 500 MG capsule Take by mouth. Active loratadine (Claritin) 10 MG tablet Take 1 tablet (10 mg) by mouth Once per day. For allergies 90 tablet 1 Active fluticasone (Flonase) 50 MCG/ACT nasal spray Administer 1-2 sprays into each nostril Once per day. Shake gently. Before first use, prime pump. After use, clean tip and replace cap. 16 g 2 5 09/08/19 26 Active Active Problems Problem Noted Date Diagnosed [...] Going to bariatric program at [facility], is going to stop because he decided [...] followup here Diagnosed as a child in [place] Occurring few times a month, will refer [...] Department Care Team Description 09/09/2024 Orders Only [facility] [address] [place] [address] [phone] Opal Pleitez MD Cough, unspecified type (Primary Dx); Hemoptysis; Abnormal CXR 09/09/2024 Telephone [facility] [address] [place], [place] [phone] Chioma Jeffery RN Results 09/08/2024 9:30 AM EST Office Visit [facility] [address] [place], [place] [phone] Opal Pleitez MD Hemoptysis (Primary Dx); Cough, [...] 12/03/2024 3:00 PM EDT Office Visit [facility] [address] [place] [address] Tenisha Castillo MD [address] [place] [address] Health Maintenance Due Date Last Done Comments [...] Procedure Name Priority Date/Time Associated Diagnosis Comments IMMUNOGLOBULIN E Routine 09/11/2024 10:5 4 AM EST Cough, unspecified type Hemoptysis Abnormal CXR CBC WITH AUTO DIFFERENTIAL Routine 09/11/2024 10:54 AM EST Cough, unspecified type Hemoptysis Abnormal CXR T-SPOT(R).TB Routine 09/08/2024 10:36 AM EST Cough, [...] Recently Relevant to Health Maintenance Results * (ABNORMAL) CBC auto differential (09/11/2024 10:54 AM EST) White Blood Count 5.7 4.8 - 10.8 X10*3/uL [facility] Red Blood Count 5.58 4.60 - 5.80 X10*6/uL [facility] Hemoglobin 15.7 14.0 - 18.0 g/dl [facility] Hematocrit 48.4 42.0 - 52.0 % [facility] Mean Corpuscular Volume 86.7 80.0 - 98.0 fL [facility] Mean Corpuscular Hemoglobin 28.1 27.0 - 33.0 pg [facility] Mean Corpuscular HGB Conc 32.4 31.0 - 36.0 g/dl [facility] Red Cell Distribution Width 13.2 11.0 - 16.0 % [facility] Platelet Count 362 160 - 400 X10*3/uL [facility] Mean Platelet Volume 9.8 9.4 - 12.4 fL [facility] Neutrophils Percent Auto 59.2 45 - 73 % [facility] Imm Gran Pct Auto 0.7(H) 0.0 - 0.4 % [facility] Lymphocytes Percent Auto 29.9 20 - 40 % [facility] Monocytes Percent Auto 7.9 2 - 11 % [facility] Eosinophils Percent Auto 1.9 0 - 4 % [facility] Basophils Percent Auto 0.4 0 - 2 % [facility] NRBC Pct Auto 0.0 0.0 - 0.2 /100WBC [facility] Neutrophils Absolute Auto 3.4 2.0 - 8.3 x10*3/uL [facility] Imm Gran Abs Auto 0.04(H) 0.00 - 0.03 X10*3/uL [facility] Lymphocytes Absolute Auto 1.7 1.2 - 4.9 X10*3/uL [facility] Monocytes Absolute Auto 0.5 0.1 - 1.2 X10*3/uL [facility] Eosinophils Absolute Auto 0.1 0.0 - 0.4 X10*3/uL [facility] Basophils Absolute Auto 0.0 0.0 - 0.2 X10*3/uL [facility] NRBC Abs Auto 0.000 0.0 - 0.012 X10*3/uL [facility] Blood Venous blood specimen / Unknown 09/11/2024 10:54 AM EST 09/11/2024 1:06 PM EST Opal Pleitez MD LAB BLOOD ORDERABLES Final Resul t Performing Organization Address [facility]/ZIP Co de Phone Number [facility] [address] [place] [phone] * Immunoglobulin E (09/11/2024 10:54 AM EST) Immunoglobulin E 44 <FT=156 kU/L [facility] Comment:THIS TEST WAS PERFOR MED AT:[employer] [place] [phone] COREY MD Blood Venous blood specimen / Unknown 09/11/2024 10:54 AM EST 09/11/2024 1:06 PM EST Opal Pleitez MD LAB BLOOD ORDERABLES Final Resul t Performing Organization Address [facility] Co de Phone Number [facility] [address] [place] [phone] * T-SPOT??.TB (09/08/2024 10:36 AM EST) Pathologist [facility] T Spot TB Negative Negative [facility] Comment:A negative test resu lt does [...] as aquantitative test. TS PANEL A 2 [facility] TS PANEL B 0 [facility] Negative Control Passed [facility] Positive Control Passed [facility] Comment:For additional infor andi, please refer tohttp://education.Centrl/faq/NFC640(This link is being provided for informational/educational purposes only.)THIS TEST WAS PERFORMED AT:[employer] [id number] [place] [phone] RENTERIA MD,PHD 09/08/2024 10:3 6 AM EST 09/08/2024 11:12 AM EST us Opal Pleitez MD LAB BLOOD ORDERABLES Final Resul t [facility] [address] [place] [phone] [phone] * XR Chest 2 Views (09/08/2024 10:10 AM EST) Anatomical Region Laterality Modality Chest Radiographic Peg ging 09/08/2024 10:1 0 AM EST Narrative 09/08/2024 10:44 AM EST ?[facility] ?[address] ?[place] [address] ?XRay Report ? Signed ? Patient: Jose Alfredo,Yonatan Melvin ? MR#: [id number] ? : 1985 ?Acct:[id number] ? Age/Sex: 38 / M ?ADM Date: 02/24/25 ? Loc: HO.HHCX ? Attending Nayla Pleitez MD ? Ordering Physician: Opal Pleitez MD ?? Date of Service: 09/08/24 ?? Procedure(s): XR chest 2V ?? Accession Number(s): [id number] ? cc: Opal Pleitez MD ? EXAMINATION: [...] DD/ 1010 ? TD/TT: 09/08/24 1020 ? Delivery Route Driver: ? Procedure Note Donotluisinterpreter, Image - 09/08/[address] [address] XRay Report Signed Patient: Yonatan Veliz MR#: [id number] : 1985Acct:[id number] Age/Sex: 38 / MADM Date: 09/08/24 Loc: HO.HHCX Attending Dr: Opal Pleitez MD Ordering Physician: Opal Pleitez MD Date of Service: 09/08/24 Procedure(s): XR chest 2V Accession Number(s): [id number] cc: Opal Pleitez MD EXAMINATION: XR CHEST [...] 09/08/24 1041 DD/ 1010 TD/TT: 09/08/24 1020 Delivery Route Driver: Opal Pleitez MD IMG XR PROCEDURES Final Result * POCT Rapid Influenza B CLEMONS ID NOW (09/08/2024 9:24 AM EST) Influenza B Negative Negative, Indeterminate [facility] QC Media Lot # [id number] [facility] Lot# Expiration Date [facility] Swab 09/08/2024 9:24 AM EST Opal Pleitez MD POINT OF CARE TEST ENTER/EDIT OR DERABLES Final Result Performing Organization Address [facility]/ZIP Co de Phone Number [facility] [address] [place] [address] [phone] * POCT Rapid Influenza A CLEMONS ID NOW (09/08/2024 9:23 AM EST) Pathologist [facility] Influenza A Negative Negative, Indeterminate [facility] QC Media Lot # [id number] [facility] Lot# Expiration Date [facility] Swab 09/08/2024 9:23 AM EST Opal Pleitez MD POINT OF CARE TEST ENTER/EDIT OR DERABLES Final Result Performing Organization Address [facility] Co de Phone Number [facility] [address] [place] [phone] * POCT Rapid Covid-19 CLEMONS ID NOW (09/08/2024 9:19 AM EST) Pathologist [facility] Coronavirus Antigen PCR Negative Negative, Indeterminate, None Detected, Invalid, Specimen unsatisfactory for evaluation, Weakly Positive QC Media Lot # [id number] Lot# Expiration Date [id number] Swab 09/08/2024 9:19 AM EST Opal Pleitez MD POINT OF CARE TEST ENTER/EDIT OR DERABLES Final Result * Hepatitis C Antibody with Reflex to HCV, RNA, Quantitative, Real-Time PCR (12/26/2023 12:46 PM EDT) Hepatitis C Antibody Nonreactive Nonreactive [facility] Comment:Antibodies to HCV no t detected; does not exclude early acuteHCV infection. Blood Venous blood specimen / Unknown 12/26/2023 12:46 PM EDT 12/26/2023 4:08 PM EDT Tenisha Castillo MD LAB BLOOD ORDERABLES Final Res ult [facility] [address] [place] [phone] * HIV-1/2 Antigen and Antibodies, Fourth Generation, with Reflexes (12/26/2023 12:46 PM EDT) HIV AB/AG Nonreactive Nonreactive [facility] Comment:HIV-1 p24 Ag and/or HIV-1/HIV-2 Ab not detected.A test result that is nonreactive does not exclude thepossibility of exposure to or infection with HIV-1 and/orHIV-2. Nonreactive results in this assay for individualswith prior exposure to HIV-1 and/or HIV-2 may be due toantigen and antibody levels that are below the limit ofdetection of this assay.The Qvanteq HIV Ag/Ab Combo assay result andsupplemental assay results should be interpreted inconjunction with the patient's clinical presentation,history and other laboratory results. If the results areinconsistent with clinical evidence, additional testing issuggested to confirm the result. Blood Venous blood specimen / Unknown 12/26/2023 12:46 PM EDT 12/26/2023 4:08 PM EDT Tenisha Castillo MD LAB BLOOD ORDERABLES Final Res ult Performing Organization Address [facility] Co de Phone Number [facility] [address] [place] [address] [phone] * (ABNORMAL) Lipid Panel, Standard (12/26/2023 12:46 PM EDT) Triglycerides 100 <150 mg/dL [facility] Comment:Desirable Triglyceri de: less than 150 mg/dLBorderline High Triglyceride 150-199 mg/dLHigh Triglyceride: 200-499 mg/dLVery High Triglyceride: greater than or equal to 5OO mg/dL Cholesterol 189 <200 mg/dL [facility] Comment:Desirable Cholestero l: less than 200 mg/dLBorderline High Cholesterol: 200-239 mg/dLHigh Cholesterol: greater than 239 mg/dL LDL Cholesterol Calculated 122(H) <100 mg/dL [facility] Comment:Desirable LDL: less than 100 mg/dLNear Optimal/Above Optimal LDL: 110- 129 mg/dLBorderline High LDL: 130-159 mg/dLHigh LDL: 160-189 mg/dLVery High LDL: greater than or equal to 190 mg/dL HDL Cholesterol 47 >40 mg/dL [facility] Comment:Desirable HDL: great er than 40 mg/dL Note: This HDL assay may give artificially low results in patients with liver disease. Blood Venous blood specimen / Unknown 12/26/2023 12:46 PM EDT 12/26/2023 4:08 PM EDT us Tenisha Castillo MD LAB BLOOD ORDERABLES Final Res ult Performing Organization Address [facility]/ZIP Co de Phone Number [facility] [address] [place] [address] [phone] from Last 3 Months or Most Recently Relevant to Health Maintenance Insurance [facility] Care Teams Topology Professor Relationship Specialty Start Date End Date Tenisha Castillo MD [address] [place] [phone] PCP - General Family Medicine 10/05/23
--- OUTSIDE RECORDS SUMMARY | 2024-10-16 11:51 | XMS_ITS | Encounter Summary ---
Author Organization [employer] [facility] Address 75 [facility] 7t [place] [address] Care Team Providers Care Mutuel Teller Name Role Phone Leslie Rios MD Primary Care Provider + Tenisha Castillo MD Primary Care Provider [phone] Encounter Details Date Type Department Care Team (Latest Contact Info) Description 08/25/2019 Abstract [facility] CONVERSIONS Dental, Provider, DDS Social History Tobacco [...] Description 12/03/2024 3:00 PM EDT Office Visit [facility] MEDICINE [address] [place] [address] Tenisha Castillo MD [address] [place] [address] documented as of this encounter Visit Diagnoses Not on filedocumented in this encounter Care Teams Mutuel Teller Relationship Specialty Start Date End Date Leslie Rios MD [address] [place] [address] PCP - General Family Medicine 02/28/17 08/22/23 Tenisha Castillo MD [address] [place] [address] PCP - General Family Medicine 10/05/23 documented as of this encounter
--- OUTSIDE RECORDS SUMMARY | 2024-10-16 11:51 | XMS_ITS | Encounter Summary ---
Author Organization [employer] Address 75 [facility] 7t [place] [address] Care Team Providers Care Material Combiner Name Role Phone Tenisha Castillo MD Primary Care Provider [phone] Reason for Referral * Consultation (Routine) - Closed Specialty Diagnoses / Procedures Referred By Contac t Referred To Contact Sleep Medicine Diagnoses LUPE (obstructive sleep apnea) Tenisha Castillo MD [address] [place] [address] Phone: tel: fax: Hailey Ledezma [address] [facility] [address] [place] [address] Phone: tel: fax: Referral ID Status Reason Start Date Expiration Date V isits Requested Visits Authorized [id number] Closed Specialty Services Required 10/10/2023 10/09/2024 6 6 Encounter Details Date Type Department Care Team (Late st Contact Info) Description 10/10/2023 Orders Only [facility] [address] [place], [place] [phone] Tenisha Castillo MD [address] [place], [place] [phone] LUPE (obstructive sleep apnea) (Primary Dx) Social [...] Description 12/03/2024 3:00 PM EDT Office Visit [facility] [address] [place] [address] Tenisha Castillo MD [address] [place] [address] Scheduled Referrals Name Type Priority Associated Diagnoses [...] clean catch procedure / Unknown 12/26/2023 12/26/2023 Comment:[facility] - 12/27/2023 11:16 AM EDT Urine Culture Report Result Urine Culture 50,000 to 100,000 cfu/ml Urine Culture Mixed bacterial donya characteristic of Urine Culture urogenital contamination. Specimen Source: Urine clean catch Tenisha Castillo MD LAB MICROBIOLOGY - GENERAL ORD ERABLES Final Result [facility] [address] [place] [phone] documented in this encounter Visit Diagnoses Diagnosis LUPE (obstructive sleep apnea)- Primary Obstructive sleep apnea (adult) (pediatric) documented in this encounter Care Teams Material Combiner Relationship Specialty Start Date End Date Tenisha Castillo MD [address] [place] [address] PCP - General Family Medicine 10/05/23 documented as of this encounter
--- OUTSIDE RECORDS SUMMARY | 2024-10-16 11:51 | XMS_ITS | Encounter Summary ---
Author Organization [employer] [facility] Address 75 [facility] 7t [place] [address] Care Team Providers Care Software Sales Name Role Phone Tenisha Castillo MD Primary Care Provider [phone] Encounter Details Date Type Department Care Team (Late st Contact Info) Description 11/01/2023 Telephone [facility] [address] [place] [address] [phone] Tenisha Castillo MD [address] [place] [phone] Social History Tobacco Use Types Packs/Day Years [...] 12/03/2024 3:00 PM EDT Office Visit [facility] [address] [place] [phone] Tenisha Castillo MD [address] [place] [address] [phone] documented as of this encounter Visit Diagnoses Not on filedocumented in this encounter Care Teams Software Sales Relationship Specialty Start Date End Date Tenisha Castillo MD [address] [place] [address] [phone] PCP - General Family Medicine 10/05/23 documented as of this encounter
--- OUTSIDE RECORDS SUMMARY | 2024-10-16 11:51 | XMS_ITS | Encounter Summary ---
Author Organization [employer] [facility] Address 75 [facility] 7t [place] [address] Care Team Providers Care Clinical Appeals Auditor Name Role Phone Leslie Rios MD Primary Care Provider + Tenisha Castillo MD Primary Care Provider [phone] Encounter Details Date Type Department Care Team (Latest Contact Info) Description 01/09/2019 Abstract [facility] CONVERSIONS Dental, Provider, DDS Social [...] Description 12/03/2024 3:00 PM EDT Office Visit [facility] [address] [place] [address] Tenisha Castillo MD [address] [place] [address] documented as of this encounter Visit Diagnoses Not on filedocumented in this encounter Care Teams Clinical Appeals Auditor Relationship Specialty Start Date End Date Leslie Rios MD [address] [place] [address] PCP - General Family Medicine 02/28/17 08/22/23 Tenisha Castlilo MD [address] [place] [address] PCP - General Family Medicine 10/05/23 documented as of this encounter
--- OUTSIDE RECORDS SUMMARY | 2024-10-16 11:51 | XMS_ITS | Clinical Summary ---
Author Organization 175 [facility] Address 175 [place] [address] Phone Care Team Providers Care Import Export Coordinator Name Role Phone Leslie Rios MD Primary Care Provider [phone] Allergies Active Allergy Reactions Criticality Noted Date [...] Type Department Care Team Description [facility] [address] [phone] Hailey Ledezma MD New Rx for CPAP machine (Replacement order ) 08/04/2024 Telephone [facility] [address] [phone] Janis Shi MA DME from Last 3 Months Social History Tobacco [...] Description 05/15/2025 2:45 PM EDT [facility] [address] [phone] Hailey Ledezma MD [address] [phone] Health Maintenance Due Date Last Done Comments [...] Most Recently Relevant to Health Maintenance Insurance [facility] [employer] Care Teams Import Export Coordinator Relationship Specialty Start Date End Date Leslie Rios MD [address] [place] [phone] PCP - General 10/02/22
== END 2024-10-16 10:42 | disposition home or self-care (01) ==
LOC: HO.RESP 10:41
PROVIDERS: PCP Family Medicine; Visit Provider Family Medicine
DX: R05.9 Cough, unspecified (principal); R04.2 Hemoptysis
CPT/HCPCS: 94010; 94640; 94727; 94729

== ENCOUNTER → 2024-10-16 11:00 | Outpatient (BNV) | payer OTHER, SELFPAY | PROVIDERS: PCP Family Medicine; Visit Provider Internal Medicine Pulmonary Disease | DX: R05.9 Cough, unspecified (principal); R04.2 Hemoptysis | CPT/HCPCS: 94060; 94727; 94729 ==

== ENCOUNTER 2024-10-22 09:11 | Outpatient (REF) | payer OTHER, SELFPAY ==
--- OUTSIDE RECORDS SUMMARY | 2024-10-22 09:49 | XMS_ITS | Encounter Summary ---
Author Organization [employer] Address 75 [facility] 7t [place] [address] Care Team Providers Care Music Supervisor Name Role Phone Tenisha Castillo MD Primary Care Provider [phone] Reason for Visit * Reason Comments Med Change Request Encounter Details Date Type Department Care Team ([facility] Contact Info) Description 10/20/2024 Refill [facility] [address] [place], [place] [phone] [facility] [address] [place] [address] Mild intermittent asthma without complication Social History Tobacco Use Types Packs/Day Years [...] Description 12/03/2024 3:00 PM EDT Office Visit [facility] [address] [place] [address] Tenisha Castillo MD [address] [place] [address] documented as of this encounter Visit Diagnoses Diagnosis Mild intermittent asthma without complication documented in this encounter Additional Health Concerns Assessment Noted Time PHQ-9 Depression Total Score: 18 024 1:03 PM EDT documented as of this encounter Care Teams Music Supervisor Relationship Specialty Start Date End Date Tenisha Castillo MD [address] [place], [place] [phone] PCP - General Family Medicine 10/05/23 documented as of this encounter
--- OUTSIDE RECORDS SUMMARY | 2024-10-22 09:49 | XMS_ITS | Encounter Summary ---
Author Organization [employer] Address 75 [facility] 7t [place] [address] Care Team Providers Care Form Raiser Name Role Phone Tenisha Castillo MD Primary Care Provider [phone] Reason for Referral * Consultation (Routine) - Closed Specialty Diagnoses / Procedures Referred By Contac t Referred To Contact Sleep Medicine Diagnoses LUPE (obstructive sleep apnea) Tenisha Castillo MD [address] [place] [address] Phone: tel: fax: Hailey Ledezma [address] [facility] [address] [place] [address] Phone: tel: fax: Referral ID Status Reason Start Date Expiration Date V isits Requested Visits Authorized [id number] Closed Specialty Services Required 10/10/2023 10/09/2024 6 6 Encounter Details Date Type Department Care Team (Late st Contact Info) Description 10/10/2023 Orders Only [facility] [address] [place], [place] [phone] Tenisha Castillo MD [address] [place], [place] [phone] LUPE (obstructive sleep apnea) (Primary Dx) Social [...] Description 12/03/2024 3:00 PM EDT Office Visit [facility] [address] [place] [address] Tenisha Castillo MD [address] [place] [address] Scheduled Referrals Name Type Priority Associated Diagnoses [...] clean catch procedure / Unknown 12/26/2023 12/26/2023 Comment:[facility] - 12/27/2023 11:16 AM EDT Urine Culture Report Result Urine Culture 50,000 to 100,000 cfu/ml Urine Culture Mixed bacterial donya characteristic of Urine Culture urogenital contamination. Specimen Source: Urine clean catch Tenisha Castillo MD LAB MICROBIOLOGY - GENERAL ORD ERABLES Final Result [facility] [address] [place] [phone] [phone] documented in this encounter Visit Diagnoses Diagnosis LUPE (obstructive sleep apnea)- Primary Obstructive sleep apnea (adult) (pediatric) documented in this encounter Care Teams Form Raiser Relationship Specialty Start Date End Date Tenisha Castillo MD [address] [place] [address] PCP - General Family Medicine 10/05/23 documented as of this encounter
--- OUTSIDE RECORDS SUMMARY | 2024-10-22 09:49 | XMS_ITS | Encounter Summary ---
Author Organization [facility] Address 75 [facility] 7t [place] [address] Care Team Providers Care Plug Assembler Name Role Phone Tenisha Castillo MD Primary Care Provider [phone] Encounter Details Date Type Department Care Team (Late st Contact Info) Description 11/01/2023 Telephone [facility] [address] [place] [address] [phone] Tenisha Castillo MD [address] [place] [phone] Social History Tobacco Use Types Packs/Day Years [...] 12/03/2024 3:00 PM EDT Office Visit [facility] [address] [place] [phone] Tenisha Castillo MD [address] [place] [phone] documented as of this encounter Visit Diagnoses Not on filedocumented in this encounter Care Teams Plug Assembler Relationship Specialty Start Date End Date Tenisha Castillo MD [address] [place] [address] [phone] PCP - General Family Medicine 10/05/23 documented as of this encounter
--- OUTSIDE RECORDS SUMMARY | 2024-10-22 09:49 | XMS_ITS | Encounter Summary ---
Author Organization [employer] [facility] Address 75 [facility] 7t [place] [address] Care Team Providers Care Survival Equipment Repairer Name Role Phone Leslie Rios MD Primary Care Provider + Tenisha Castillo MD Primary Care Provider [phone] Encounter Details Date Type Department Care Team (Latest Contact Info) Description 01/09/2019 Abstract [facility] Dental, Provider, DDS Social History Tobacco [...] Description 12/03/2024 3:00 PM EDT Office Visit [facility] [address] [place] [address] Tenisha Castillo MD [address] [place] [address] documented as of this encounter Visit Diagnoses Not on filedocumented in this encounter Care Teams Survival Equipment Repairer Relationship Specialty Start Date End Date Leslie Rios MD [address] [place] [address] PCP - General Family Medicine 02/28/17 08/22/23 Tenisha Castillo MD [address] [place] [address] PCP - General Family Medicine 10/05/23 documented as of this encounter
--- OUTSIDE RECORDS SUMMARY | 2024-10-22 09:49 | XMS_ITS | Encounter Summary ---
Author Organization [employer] Address 75 [facility] 7t [place] [address] Care Team Providers Care Clerical Methods Analyst Name Role Phone Tenisha Castillo MD Primary Care Provider [phone] Reason for Referral * PFT (Routine) - Closed Specialty Diagnoses / Procedures Referred By Contac t Referred To Contact Diagnoses Cough, unspecified type Hemoptysis Abnormal CXR Procedures Pulmonary Function Test Opal Pleitez MD [address] [place] [address] Phone: tel: fax: [address] Phone: tel: fax: Referral ID Status Reason Start Date Expiration Date Visits Re quested Visits Authorized [id number] Closed 09/09/2024 09/09/2025 1 1 Encounter Details Date Type Department Care Team (Late st Contact Info) Description 09/09/2024 Orders Only [facility] [address] [place] [phone] Opal Pleitez MD [address] [place] [address] Cough, unspecified type (Primary Dx); [...] Description 12/03/2024 3:00 PM EDT Office Visit [facility] [address] [place] [address] Tenisha Castillo MD [address] [place] [address] Scheduled Orders Name Type Priority Associated Diagnoses [...] Immunoglobulin E (09/11/2024 10:54 AM EST) Pathologist [facility] Immunoglobulin E 44 <BY=743 kU/L [facility] Comment:THIS TEST WAS PERFOR MED AT:[facility] [address] [phone] COREY MD Blood Venous blood specimen / Unknown 09/11/2024 10:54 AM EST 09/11/2024 1:06 PM EST us Opal Pleitez MD LAB BLOOD ORDERABLES Final Resul t [facility] [address] [place] [phone] * (ABNORMAL) CBC auto differential (09/11/2024 10:54 AM EST) Pathologist [facility] White Blood Count 5.7 4.8 - 10.8 X10*3/uL [facility] Red Blood Count 5.58 4.60 - 5.80 X10*6/uL [facility] Hemoglobin 15.7 14.0 - 18.0 g/dl [facility] Hematocrit 48.4 42.0 - 52.0 % [facility] Mean Corpuscular Volume 86.7 80.0 - 98.0 fL [facility] Mean Corpuscular Hemoglobin 28.1 27.0 - 33.0 pg [facility] Mean Corpuscular HGB Conc 32.4 31.0 - 36.0 g/dl [facility] Red Cell Distribution Width 13.2 11.0 - 16.0 % [facility] Platelet Count 362 160 - 400 X10*3/uL [facility] Mean Platelet Volume 9.8 9.4 - 12.4 fL [facility] Neutrophils Percent Auto 59.2 45 - 73 % [facility] Imm Gran Pct Auto 0.7(H) 0.0 - 0.4 % [facility] Lymphocytes Percent Auto 29.9 20 - 40 % [facility] Monocytes Percent Auto 7.9 2 - 11 % [facility] Eosinophils Percent Auto 1.9 0 - 4 % [facility] Basophils Percent Auto 0.4 0 - 2 % [facility] NRBC Pct Auto 0.0 0.0 - 0.2 /100WBC [facility] Neutrophils Absolute Auto 3.4 2.0 - 8.3 x10*3/uL [facility] Imm Gran Abs Auto 0.04(H) 0.00 - 0.03 X10*3/uL [facility] Lymphocytes Absolute Auto 1.7 1.2 - 4.9 X10*3/uL [facility] Monocytes Absolute Auto 0.5 0.1 - 1.2 X10*3/uL [facility] Eosinophils Absolute Auto 0.1 0.0 - 0.4 X10*3/uL [facility] Basophils Absolute Auto 0.0 0.0 - 0.2 X10*3/uL [facility] NRBC Abs Auto 0.000 0.0 - 0.012 X10*3/uL [facility] Blood Venous blood specimen / Unknown 09/11/2024 10:54 AM EST 09/11/2024 1:06 PM EST us Opal Pleitez MD LAB BLOOD ORDERABLES Final Resul t [facility] [address] [place], [place] [phone] documented in this encounter Visit Diagnoses Diagnosis Cough, unspecified type- Primary Hemoptysis Abnormal CXR Nonspecific (abnormal) findings on radiological and other examination of lung field documented in this encounter Additional Health Concerns Assessment Noted Time PHQ-9 Depression Total Score: 18 024 1:03 PM EDT documented as of this encounter Care Teams Clerical Methods Analyst Relationship Specialty Start Date End Date Tenisha Castillo MD [address] [place] [address] PCP - General Family Medicine 10/05/23 documented as of this encounter
--- OUTSIDE RECORDS SUMMARY | 2024-10-22 09:49 | XMS_ITS | Encounter Summary ---
Author Organization [facility] [facility] Address 75 [facility] 7t [place] [address] Care Team Providers Care Lock And Dam Operator Name Role Phone Leslie Rios MD Primary Care Provider + Tenisha Castillo MD Primary Care Provider Encounter Details Date Type Department Care Team (Latest Contact Info) Description 08/25/2019 Abstract [facility] Dental, Provider, DDS Social [...] Description 12/03/2024 3:00 PM EDT Office Visit [facility] [address] [place] [address] Tenisha Castillo MD [address] [place] [address] documented as of this encounter Visit Diagnoses Not on filedocumented in this encounter Care Teams Lock And Dam Operator Relationship Specialty Start Date End Date Leslie Rios MD [address] [place] [address] PCP - General Family Medicine 02/28/17 08/22/23 Tenisha Castillo MD [address] [place] [address] PCP - General Family Medicine 10/05/23 documented as of this encounter
--- OUTSIDE RECORDS SUMMARY | 2024-10-22 09:49 | XMS_ITS | Clinical Summary ---
Author Organization 175 [facility] Address 175 [place] [address] Phone Care Team Providers Care Hearing Screener Name Role Phone Leslie Rios MD Primary Care Provider [phone] Allergies Active Allergy Reactions Criticality Noted Date [...] Type Department Care Team Description [facility] [address] [phone] Hailey Ledezma MD New Rx for CPAP machine (Replacement order ) 08/04/2024 Telephone [facility] [address] [phone] Janis Shi MA DME from [...] Description 05/15/2025 2:45 PM EDT [facility] [address] [phone] Hailey Ledezma MD [address] [address] Health Maintenance Due Date Last Done Comments [...] age to complete this topic Meningococcal B Vaccine Aged Out No l onger eligible based on patient's age to complete [...] Most Recently Relevant to Health Maintenance Insurance [facility] [employer] Care Teams Hearing Screener Relationship Specialty Start Date End Date Leslie Rios MD [address] [place] [phone] PCP - General 10/02/22
--- OUTSIDE RECORDS SUMMARY | 2024-10-22 09:49 | XMS_ITS | Clinical Summary ---
Author Organization [employer] Address [address] [facility] 7[address] [place] [address] Care Team Providers Care Tooth Cutter Spur Name Role Phone Tenisha Castillo MD Primary Care Provider [phone] Allergies No known active allergies Medications * This document contains information received from the source organization and may not represent a complete record from that organization. Acetaminophen 500 MG capsule Take by mouth. Acti ve loratadine (Claritin) 10 MG tablet Take 1 tablet (10 mg) by mouth Once per day. For allergies 90 tablet 1 5 Active fluticasone (Flonase) 50 MCG/ACT nasal spray Administer 1-2 sprays into each nostril Once per day. Shake gently. Before first use, prime pump. After use, clean tip and replace cap. 16 g 2 5 09/08/19 26 Active albuterol 108 (90 Base) MCG/ACT inhalerIndication s:Mild intermittent asthma without complication Inhale 2 puffs every 6 (six) hours if needed for shortness of breath (or cough). 18 g 5 10/21/19 26 Active Active Problems Problem Noted Date [...] PM EST): Going to bariatric program at [facility], is going to stop because he decided [...] followup here Diagnosed [place] a [place] in [place] Occurring few times a month, will refer [...] Encounters Date Type Department Care Team Description 10/20/2024 Refill [facility] MED[facility] [address] [place] [address] [place] FNP Mild intermittent asthma without complication 09/09/2024 Orders Only [facility] [address] [place] [address] Opal Pleitez MD Cough, unspecified type (Primary Dx); Hemoptysis; Abnormal CXR 09/09/2024 Refill [facility] MED[facility] [address] [place] [address] Chioma Jeffery, MAURICIO Mild intermittent asthma without complication 09/08/2024 9:30 AM EST Office Visit [facility] [address] [place] [address] Opal Pleitez MD Hemoptysis (Primary Dx); Cough, [...] 3:00 PM EDT Office Visit [facility] [address] [place] [address] Tenisha Castillo MD [address] [place], [place] [phone] Health Maintenance Due Date Last Done Comments Family Planning (PISQ) 10/05/1999 Hepatitis B Vaccines (1 of 3 - 19+ 3-dose series) 10/05/2003 Pneumococcal Vaccine: Pediatrics (0 to 5 Years) and At-Risk Patients (6 to 49) Years) (2 of 2 - PCV) 05/10/2017 05/10/2016 COVID-19 Vaccine ( season) 2024 08/11/2021, 10/13/2020, 09/15/2020 Depression Monitoring (PHQ-9) 06/26/2024 12/26/2023, 12/26/2023 Alcohol/Substance Use Screening 12/25/2024 12/26/2023 Depression Screening 12/25/2024 12/26/2023, 12/26/19 24 SDOH Screening 12/25/2024 12/26/2023 Tobacco Screening 09/08/2025 09/08/2024 DTaP/Tdap/Td Vaccines (2 - Td or Tdap) 04/30/2027 04/30/2017 Lipid Panel 12/25/2028 12/26/2023, 08/05/2020 Zoster Vaccines (1 of 2) 2034 RSV Patients and Patients Aged 60 years or older (1 - 1-dose 75+ series) 10/05/2059 HIV Screening Completed 12/26/2023 Hepatitis C Screening [...] Blood Count 5.7 4.8 - 10.8 X10*3/uL [facility] Red Blood Count 5.58 4.60 - 5.80 X10*6/uL [facility] Hemoglobin 15.7 14.0 - 18.0 g/dl [facility] Hematocrit 48.4 42.0 - 52.0 % [facility] Mean Corpuscular Volume 86.7 80.0 - 98.0 fL [facility] Mean Corpuscular Hemoglobin 28.1 27.0 - 33.0 pg [facility] Mean Corpuscular HGB Conc 32.4 31.0 - 36.0 g/dl [facility] Red Cell Distribution Width 13.2 11.0 - 16.0 % [facility] Platelet Count 362 160 - 400 X10*3/uL [facility] Mean Platelet Volume 9.8 9.4 - 12.4 fL [facility] Neutrophils Percent Auto 59.2 45 - 73 % [facility] Imm Gran Pct Auto 0.7(H) 0.0 - 0.4 % [facility] Lymphocytes Percent Auto 29.9 20 - 40 % [facility] Monocytes Percent Auto 7.9 2 - 11 % [facility] Eosinophils Percent Auto 1.9 0 - 4 % [facility] Basophils Percent Auto 0.4 0 - 2 % [facility] NRBC Pct Auto 0.0 0.0 - 0.2 /100WBC [facility] Neutrophils Absolute Auto 3.4 2.0 - 8.3 x10*3/uL [facility] Imm Gran Abs Auto 0.04(H) 0.00 - 0.03 X10*3/uL [facility] Lymphocytes Absolute Auto 1.7 1.2 - 4.9 X10*3/uL [facility] Monocytes Absolute Auto 0.5 0.1 - 1.2 X10*3/uL [facility] Eosinophils Absolute Auto 0.1 0.0 - 0.4 X10*3/uL [facility] Basophils Absolute Auto 0.0 0.0 - 0.2 X10*3/uL [facility] NRBC Abs Auto 0.000 0.0 - 0.012 X10*3/uL [facility] Blood Venous blood specimen / Unknown 09/11/2024 10:54 AM EST 09/11/2024 1:06 PM EST Opal Pleitez MD LAB BLOOD ORDERABLES Final Resul t Performing Organization Address City/[facility]/ZIP Co de Phone Number [facility] [address] [place] [phone] * Immunoglobulin E (09/11/2024 10:54 AM EST) Pathologist [facility] Immunoglobulin E 44 <LR=392 kU/L [facility] Comment:THIS TEST WAS PERFOR MED AT:[facility] [address] [id number] COREY MD Blood Venous blood specimen / Unknown 09/11/2024 10:54 AM EST 09/11/2024 1:06 PM EST Opal Pleitez MD LAB BLOOD ORDERABLES Final Resul t Performing Organization Address City/[facility]/ZIP Co de Phone Number [facility] [address] [place] [phone] * T-SPOT??.TB (09/08/2024 10:36 AM EST) Pathologist [facility] T Spot TB Negative Negative [facility] Comment:A negative test resu lt [...] as aquantitative test. TS PANEL A 2 [facility] TS PANEL B 0 [facility] Negative Control Passed [facility] Positive Control Passed [facility] Comment:For additional infor mation, please refer [email or web address].[employer]/faq/NLQ844(This link is being provided for informational/educational purposes only.)THIS TEST WAS PERFORMED AT:[facility] [id number] [place] [address]PHHZUSFDANNY RENTERIA MD,PHD 09/08/2024 10:3 6 AM EST 09/08/2024 11:12 AM EST us Opal Pleitez MD LAB BLOOD ORDERABLES Final Resul t [facility] [address] [place] [address] [phone] * XR Chest 2 Views (09/08/2024 10:10 AM EST) Anatomical Region Laterality Modality Chest Radiographic Peg ging 09/08/2024 10:1 0 AM EST Narrative 09/08/2024 10:44 AM EST ?[facility] ?[address] ?[place] [address] ?XRay Report ? Signed ? Patient: Jose Alfredo,Yonatan Melvin ? MR#: [id number] ? : 1985 ?Acct:[id number] ? Age/Sex: 38 / M ?ADM Date: 02/24/25 ? Loc: HO.HHCX ? Attending Dr: Opal Pleitez MD ? Ordering Physician: Opal Pleitez MD ?? Date of Service: 09/08/24 ?? Procedure(s): XR chest 2V ?? Accession Number(s): [id number] ? cc: Opal Pleitez MD ? EXAMINATION: [...] DD/ 1010 ? TD/TT: 09/08/24 1020 ? Rn Surgical: ? Procedure Note Donmiguel ainterpreter, Image - 09/08/[address] [address] XRay Report Signed Patient: Yonatan Veliz MR#: [id number] : 1985Acct:[id number] Age/Sex: 38 / MADM Date: 09/08/24 Loc: HO.HHCX Attending Dr: Opal Pleitez MD Ordering Physician: Opal Pleitez MD Date of Service: 09/08/24 Procedure(s): XR chest 2V Accession Number(s): [id number] cc: Opal Pleitez MD EXAMINATION: XR CHEST [...] 09/08/24 1041 DD/ 1010 TD/TT: 09/08/24 1020 Rn Surgical: us Opal Pleitez MD IMG XR PROCEDURES Final Result * POCT Rapid Influenza B CLEMONS ID NOW (09/08/2024 9:24 AM EST) Influenza B Negative Negative, Indeterminate [facility] QC Media Lot # [id number] [facility] Lot# Expiration Date [facility] Swab 09/08/2024 9:24 AM EST us Opal Pleitez MD POINT OF CARE TEST ENTER/EDIT OR DERABLES Final Result Performing Organization Address [facility]/State/ZIP Co de Phone Number [facility] [address] [place] [phone] * POCT Rapid Influenza A CLEMONS ID NOW (09/08/2024 9:23 AM EST) Influenza A Negative Negative, Indeterminate [facility] QC Media Lot # [id number] [facility] Lot# Expiration Date [facility] Swab 09/08/2024 9:23 AM EST us Opal Pleitez MD POINT OF CARE TEST ENTER/EDIT OR DERABLES Final Result Performing Organization Address [facility]/ZIP Co de Phone Number [facility] [address] [place] [address] [phone] * POCT Rapid Covid-19 CLEMONS ID NOW (09/08/2024 9:19 AM EST) Pathologist [facility] Coronavirus Antigen PCR Negative Negative, Indeterminate, None Detected, Invalid, Specimen unsatisfactory for evaluation, Weakly Positive QC Media Lot # [id number] Lot# Expiration Date [id number] Swab 09/08/2024 9:19 AM EST Opal Pleitez MD POINT OF CARE TEST ENTER/EDIT OR DERABLES Final Result * Hepatitis C Antibody with Reflex to HCV, RNA, Quantitative, Real-Time PCR (12/26/2023 12:46 PM EDT) [facility] Hepatitis C Antibody Nonreactive Nonreactive [facility] Comment:Antibodies to HCV no t detected; does not exclude early acuteHCV infection. Blood Venous blood specimen / Unknown 12/26/2023 12:46 PM EDT 12/26/2023 4:08 PM EDT Tenisha Castillo MD LAB BLOOD ORDERABLES Final Res ult Performing Organization Address [facility] Co de Phone Number [facility] [address] [place] [address] [phone] * HIV-1/2 Antigen and Antibodies, Fourth Generation, with Reflexes (12/26/2023 12:46 PM EDT) [facility] HIV AB/AG Nonreactive Nonreactive [facility] Comment:HIV-1 p24 Ag and/or HIV-1/HIV-2 Ab not detected.A test result that is nonreactive does not exclude thepossibility of exposure to or infection with HIV-1 and/orHIV-2. Nonreactive results in this assay for individualswith prior exposure to HIV-1 and/or HIV-2 may be due toantigen and antibody levels that are below the limit ofdetection of this assay.The [employer] HIV Ag/Ab Combo assay result andsupplemental assay results should be interpreted inconjunction with the patient's clinical presentation,history and other laboratory results. If the results areinconsistent with clinical evidence, additional testing issuggested to confirm the result. Blood Venous blood specimen / Unknown 12/26/2023 12:46 PM EDT 12/26/2023 4:08 PM EDT Tenisha Castillo MD LAB BLOOD ORDERABLES Final Res ult Performing Organization Address [facility]/State/ZIP Co de Phone Number [facility] [address] [place], [place] [phone] * (ABNORMAL) Lipid Panel, Standard (12/26/2023 12:46 PM EDT) Triglycerides 100 <150 mg/dL [facility] Comment:Desirable Triglyceri de: less than 150 mg/dLBorderline High Triglyceride 150-199 mg/dLHigh Triglyceride: 200-499 mg/dLVery High Triglyceride: greater than or equal to 5OO mg/dL Cholesterol 189 <200 mg/dL [facility] Comment:Desirable Cholestero l: less than 200 mg/dLBorderline High Cholesterol: 200-239 mg/dLHigh Cholesterol: greater than 239 mg/dL LDL Cholesterol Calculated 122(H) <100 mg/dL [facility] Comment:Desirable LDL: less than 100 mg/dLNear Optimal/Above Optimal LDL: 110- 129 mg/dLBorderline High LDL: 130-159 mg/dLHigh LDL: 160-189 mg/dLVery High LDL: greater than or equal to 190 mg/dL HDL Cholesterol 47 >40 mg/dL [facility] Comment:Desirable HDL: great er than 40 mg/dL Note: This HDL assay may give artificially low results in patients with liver disease. Blood Venous blood specimen / Unknown 12/26/2023 12:46 PM EDT 12/26/2023 4:08 PM EDT Tenisha Castillo MD LAB BLOOD ORDERABLES Final Res ult [facility] [address] [place] [phone] from Last 3 Months or Most Recently Relevant to Health Maintenance Insurance [facility] Care Teams Tooth Cutter Spur Relationship Specialty Start Date End Date Tenisha Castillo MD [address] [place] [phone] PCP - General Family Medicine 10/05/23
--- OUTSIDE RECORDS SUMMARY | 2024-10-22 09:49 | XMS_ITS | Encounter Summary ---
Author Organization [facility] [employer] [facility] Address [address] [facility] 7 [place] [address] Care Team Providers Care Supervisor Correspondence Section Name Role Phone Tenisha Castillo MD Primary Care Provider [phone] Reason for Visit * Reason Onset Date Comments Error 12/17/2023 Encounter Details Date Type Department Care Team (Late Contact Info) Description 12/17/2023 Telephone [facility] MEDICINE [address] [place] [address] [phone] Tenisha Castillo MD [address] [place] [phone] Error Social History Tobacco Use Types Packs/Day [...] 12/03/2024 3:00 PM EDT Office Visit [facility] MEDICINE [address] [place] [address] [phone] Tenisha Castillo MD [address] [place] [address] [phone] documented as of this encounter Visit Diagnoses Not on filedocumented in this encounter Care Teams Supervisor Correspondence Section Relationship Specialty Start Date End Date Tenisha Castillo MD [address] [place] [phone] PCP - General Family Medicine 10/05/23 documented as of this encounter
--- OUTSIDE RECORDS SUMMARY | 2024-10-22 09:49 | XMS_ITS | Encounter Summary ---
Author Organization [email or web address] Address [address] [facility] [address] [place] [address] Care Team Providers Care Swinging Cut Off Saw Operator Name Role Phone Tenisha Castillo MD Primary Care Provider [phone] Reason for Visit * Reason Onset Date Comments Results 09/09/2024 Encounter Details Date Type Department Care Team ([facility] st Contact Info) Description 09/09/2024 Refill [facility] MEDICINE [address] [place], [place] [phone] Chioma Jeffery, RN [address] [place] [address] Mild intermittent asthma without complication Social History [...] the past 12 months, has t he [employer], gas, oil or water Viewdle threatened to shut off services in your [...] as of this encounter Miscellaneous Notes * Addendum Note - Chioma Jeffery RN - 10/18/2024 11:17 AM EDTAddended by: CHIOMA JEFFERY on: 10/18/2024 11:17 AM Modules accepted: Orders * Telephone Encounter - Chioma Jeffery RN - 10/18/2024 11:08 AM EDT Telephone call placed to pt regarding below results and POC. Explained PFT reassuring and did show positive response to bronchodilators like the rescue inhalers people with asthma use. Pt denies having an inhaler already. Informed that we can send him one for as needed use to keep with him if he would like. To be used for SOB or cough. Pt agreeable. Requesting it be sent to [facility] on [address] in [place] as his [facility] pharmacy no longer accepts his insurance. Informed will most likely be sent Sunday or Sunday. Pt agreeable. Queued to new preferred pharmacy. Nm team, I am covering Dr. Pleitez's PAQ. She ordered PFTs to evaluate cough which showed no significant obstruction or restriction but a positive response to bronchodilation. Please let patient know of these results, he can try an albuterol inhaler as needed. If he does not already have one please queue to me. He has a follow-up scheduled with Dr. Recinos in November already. Thanks! * Telephone Encounter - Opal Pleitez MD [...] evaluate. Would prefer it be sent to [facility]. Informed labs he can go to [facility] orhere, no appt needed to have [...] would like to have the test in [place] or in [place]. Thank you documented in this encounter Plan of Treatment Upcoming Encounters Date Type Department Care Team (Late st Contact Info) Description 12/03/2024 3:00 PM EDT Office Visit [facility] MEDICINE [address] [place] [address] Tenisha Castillo MD [address] [place] [address] documented as of this encounter Visit Diagnoses Diagnosis Mild intermittent asthma without complication documented in this encounter Additional Health Concerns Assessment Noted Time PHQ-9 Depression Total Score: 18 06/2 024 1:03 PM EDT documented as of this encounter Care Teams Swinging Cut Off Saw Operator Relationship Specialty Start Date End Date Tenisha Castillo MD [address] [place] [phone] PCP - General Family Medicine 10/05/23 documented as of this encounter
[2024-10-22 11:19] LABS: Anion Gap 13 (12-20); Blood Urea Nitrogen 15 mg/dL (9-16); Calcium 9.6 mg/dL (8.4-10.2); Carbon Dioxide 28 mmol/L (22-29); Chloride 103 mmol/L (96-108); Estimated Glomerular Filt Rate > 60; Glucose Random 84 mg/dL (60-115); Potassium 4.1 mmol/L (3.3-5.1); Sodium 140 mmol/L (135-145)
== END 2024-10-22 09:12 | disposition home or self-care (01) ==
LOC: HO.HMGCLDS 09:11
PROVIDERS: PCP General Practice; Visit Provider Physician Assistant
DX: I10 Essential (primary) hypertension (principal)
CPT/HCPCS: 36415; 80048

== ENCOUNTER 2025-01-08 08:25 | Outpatient (REF) | payer OTHER, SELFPAY ==
--- OUTSIDE RECORDS SUMMARY | 2025-01-08 08:44 | XMS_ITS | Encounter Summary ---
Author Organization [employer] Address [address] [facility] 7t [place] [address] Care Team Providers Care Salvage Mechanic Name Role Phone Tenisha Castillo MD Primary Care Provider [phone] Reason for Referral * PFT (Routine) - Closed Specialty Diagnoses / Procedures Referred By Contac t Referred To Contact Diagnoses Cough, unspecified type Hemoptysis Abnormal CXR Procedures Pulmonary Function Test Opal Pleitze MD [address] [place] [address] Phone: tel: fax: [address] Phone: tel: fax: Referral ID Status Reason Start Date Expiration Date Visits Re quested Visits Authorized [id number] Closed 09/09/2024 09/09/2025 1 1 Encounter Details Date Type Department Care Team (Late st Contact Info) Description 09/09/2024 Orders Only [facility] MEDICINE [address] [place] [address] [phone] Opal Pleitez MD [address] [place], [place] [phone] Cough, unspecified type (Primary Dx); Hemoptysis; Abnormal [...] Care Team (Late st Contact Info) Description 02/03/2025 1:00 PM EDT Clinical Support [facility] MEDICINE [address] [place] [phone] 03/06/2025 1:30 PM EDT Office Visit [facility] MEDICINE [address] [place] [address] [phone] Tenisha Castillo MD [address] [place] [address] 03/09/2025 1:15 PM EDT Office Visit [facility] OPTOMETRY [address] [place] [address] Autumn Thomas, OD [address] [place], [place] [phone] Scheduled Orders Name Type Priority Associated Diagnoses Orde r Schedule Pulmonary Function Test PFT Routine Cough, unspecified type Hemoptysis Abnormal CXR Expected: 09/09/2024, Expires: 03/09/2025 documented as of this encounter Procedures Procedure Name Priority Date/Time Associated Diagnosis Comments BASIC METABOLIC PANEL Routine 10/22/2024 9:24 AM EDT Cough, unspecified type CBC WITH AUTO DIFFERENTIAL Routine 09/11/2024 10:54 AM EST Cough, unspecified type Hemoptysis Abnormal CXR IMMUNOGLOBULIN E Routine 09/11/2024 10:5 4 AM EST Cough, unspecified type Hemoptysis Abnormal CXR documented in this encounter Results * Basic Metabolic Panel (10/22/2024 9:24 AM EDT) Sodium 140 135 - 145 mmol/L [facility] Potassium 4.1 3.3 - 5.1 mmol/L [facility] Chloride 103 96 - 108 mmol/L [facility] Carbon Dioxide 28 22 - 29 mmol/L [facility] Anion Gap 13 12 - 20 [facility] Urea Nitrogen (BUN) 15 9 - 16 mg/dL [facility] Creatinine, Serum 0.78 0.5 - 1.4 mg/dL [facility] Estimated Glomerular Filt Rate >60 [facility] Comment:Chronic Kidney Disea se: Estimated GFR < 60 mL/min/1.40h0Pocham Kidney Disease: Estimated GFR < 15 mL/min/1.73m2 Glucose 84 60 - 115 mg/dL [facility] Calcium 9.6 8.4 - 10.2 mg/dL [facility] 10/22/2024 9:24 AM EDT 10/22/2024 10:47 AM EDT us Generic External Data Provider LAB BLOOD ORDERAB LES Final Result Performing Organization Address [facility]/ZIP Co de Phone Number [facility] [address] [place] [address] [phone] * Immunoglobulin E (09/11/2024 10:54 AM EST) Pathologist [facility] Immunoglobulin E 44 <XC=611 kU/L [facility] Comment:THIS TEST WAS PERFOR MED AT:[facility] [place] [phone] COREY MD Blood Venous blood specimen / Unknown 09/11/2024 10:54 AM EST 09/11/2024 1:06 PM EST us Opal Pleitez MD LAB BLOOD ORDERABLES Final Resul t Performing Organization Address City/[facility]/ZIP Co de Phone Number [facility] [address] [place] [phone] * (ABNORMAL) CBC auto differential (09/11/2024 10:54 AM EST) [facility] White Blood Count 5.7 4.8 - 10.8 X10*3/uL [facility] Red Blood Count 5.58 4.60 - 5.80 X10*6/uL [facility] Hemoglobin 15.7 14.0 - 18.0 g/dl [facility] Hematocrit 48.4 42.0 - 52.0 % [facility] Mean Corpuscular Volume 86.7 80.0 - 98.0 fL [facility] Mean Corpuscular Hemoglobin 28.1 27.0 - 33.0 pg [facility] Mean Corpuscular HGB Conc 32.4 31.0 - 36.0 g/dl [facility] Red Cell Distribution Width 13.2 11.0 - 16.0 % [facility] Platelet Count 362 160 - 400 X10*3/uL [facility] Mean Platelet Volume 9.8 9.4 - 12.4 fL [facility] Neutrophils Percent Auto 59.2 45 - 73 % [facility] Imm Gran Pct Auto 0.7(H) 0.0 - 0.4 % [facility] Lymphocytes Percent Auto 29.9 20 - 40 % [facility] Monocytes Percent Auto 7.9 2 - 11 % [facility] Eosinophils Percent Auto 1.9 0 - 4 % [facility] Basophils Percent Auto 0.4 0 - 2 % [facility] NRBC Pct Auto 0.0 0.0 - 0.2 /100WBC [facility] Neutrophils Absolute Auto 3.4 2.0 - 8.3 x10*3/uL [facility] Imm Gran Abs Auto 0.04(H) 0.00 - 0.03 X10*3/uL [facility] Lymphocytes Absolute Auto 1.7 1.2 - 4.9 X10*3/uL [facility] Monocytes Absolute Auto 0.5 0.1 - 1.2 X10*3/uL [facility] Eosinophils Absolute Auto 0.1 0.0 - 0.4 X10*3/uL [facility] Basophils Absolute Auto 0.0 0.0 - 0.2 X10*3/uL [facility] NRBC Abs Auto 0.000 0.0 - 0.012 X10*3/uL [facility] Blood Venous blood specimen / Unknown 09/11/2024 10:54 AM EST 09/11/2024 1:06 PM EST us Opal Pleitez MD LAB BLOOD ORDERABLES Final Resul t [facility] [address] [place] [address] [phone] documented in this encounter Visit Diagnoses Diagnosis Cough, unspecified type- Primary Hemoptysis Abnormal CXR Nonspecific (abnormal) findings on radiological and other examination of lung field documented in this encounter Additional Health Concerns Assessment Noted Time PHQ-9 Depression Total Score: 18 024 1:03 PM EDT documented as of this encounter Care Teams Salvage Mechanic Relationship Specialty Start Date End Date Tenisha Castillo MD [address] [place] [phone] PCP - General Family Medicine 10/05/23 documented as of this encounter
[2025-01-08 10:35] LABS: Anion Gap 10 (12-20); Blood Urea Nitrogen 15 mg/dL (9-16); Calcium 9.3 mg/dL (8.4-10.2); Carbon Dioxide 29 mmol/L (22-29); Chloride 105 mmol/L (96-108); Estimated Glomerular Filt Rate > 60; Glucose Random 109 mg/dL (60-115); Potassium 3.9 mmol/L (3.3-5.1); Sodium 140 mmol/L (135-145)
[2025-01-08 10:53] LABS: Folate 8.2 ng/mL (> or = 4.0); Vitamin B12 238 pg/mL (200-900)
[2025-01-08 10:55] LABS: TSH reflex Free T4 1.11 uIU/mL (0.32-4.0)
== END 2025-01-08 08:26 | disposition home or self-care (01) ==
LOC: HO.HMGCLDS 08:25
PROVIDERS: PCP General Practice; Visit Provider Psychiatry & Neurology Neurology
DX: R41.3 Other amnesia (principal)
CPT/HCPCS: 36415; 80048; 82607; 82746; 84443

== ENCOUNTER 2025-01-20 13:31 | Outpatient (REF) | payer OTHER, SELFPAY ==
--- OUTSIDE RECORDS SUMMARY | 2025-01-20 14:13 | XMS_ITS | Clinical Summary ---
Author Organization 175 [facility] Address [address] [place] [address] Phone Care Team Providers Care Garment Parts Cutter Machine Name Role Phone Leslie Rios MD Primary Care Provider [phone] Allergies Active Allergy Reactions Criticality Noted Date [...] (BMI) of 50.0 to 59.9 in adult (CMS/HCC V24, CMS/HCC V28) Encounters Date Type Department Care Team Description 11/17/2024 Telephone [facility] [address] [phone] Brisa Ledezma MD from Last 3 Months Social History Tobacco [...] 75 06/13/2024 8:28 AM EST Temperature 35.7 C (96.2 F) 06/13/2024 8:28 AM EST Respiratory Rate 16 06/13/2024 8:28 AM EST [...] Description 05/15/2025 2:45 PM EDT Office Visit [facility] [address] [phone] Hailey Ledezma MD [address] [address] Health Maintenance Due Date Last Done Comments Hepatitis B Vaccines (1 of 3 - 19+ 3-dose series) 10/05/2003 Social Influencers of Health Screening 06/17/2022 Hypertension/CHF/CAD Annual BMP Blood Test 08/29/2023 COVID-19 Vaccine ( season) 2024 08/11/2021, 10/13/2020, 09/15/2020 Depression Screening 12/25/2024 12/26/2023, 09/03/19 24 Influenza Vaccine (#1) 2025 4, 08/31/2020, 04/30/2017, Additional history exists DTaP,Tdap,and Td Vaccines (2 - Td or Tdap) 04/30/2027 04/30/2017 Cholesterol Screening (Lipid Panel) 12/25/2028 12/26/2023 Pneumococcal Vaccine: Pediatrics (0 to 5 Years) and At-Risk Patients (6 to 49 Years) Aged Out 05/10/2016 No longer eligible based on patient's age to complete this topic HIV Screening Completed 12/26/2023 Hepatitis C Screening Completed 12/26/2023 HIB Vaccines Aged Out No longer eligi [...] Procedure Name Priority Date/Time Associated Diagnosis Comments DEPRESSION SCREENING Routine 09/03/2023 from Last 3 Months or Most Recently Relevant to Health Maintenance Results * Depression Screening (09/03/2023) Depression Screening Abstracted us Historical Provider HEALTH MAINTENANCE Final Result from Last 3 Months or Most Recently Relevant to Health Maintenance Insurance [facility] Care Teams Garment Parts Cutter Machine Relationship Specialty Start Date End Date Leslie Rios MD [address] [place] [phone] PCP - General 10/02/22
--- OUTSIDE RECORDS SUMMARY | 2025-01-20 14:13 | XMS_ITS | Encounter Summary ---
Author Organization [employer] Address [address] [facility] [address] [place] [address] Care Team Providers Care Cloth Finishing Range Operator Name Role Phone Tenisha Castillo MD Primary Care Provider [phone] Reason for Referral * PFT (Routine) - Closed Specialty Diagnoses / Procedures Referred By Contac t Referred To Contact Diagnoses Cough, unspecified type Hemoptysis Abnormal CXR Procedures Pulmonary Function Test Opal Pleitez MD [address] [place] [phone] Phone: tel: fax: [address] Phone: tel: fax: Referral ID Status Reason Start Date Expiration Date Visits Re quested Visits Authorized [id number] Closed 09/09/2024 09/09/2025 1 1 Encounter Details Date Type Department Care Team (Late st Contact Info) Description 09/09/2024 Orders Only [facility] MEDICINE [address] [place] [address] [phone] Opal Pleitez MD [address] [place], [place] [phone] Cough, unspecified type (Primary Dx); Hemoptysis; Abnormal [...] Description 02/03/2025 1:00 PM EDT Clinical Support [facility] MEDICINE [address] [place] [phone] 03/06/2025 1:30 PM EDT Office Visit [facility] MEDICINE [address] [place] [address] [phone] Tenisha Castillo MD [address] [place] [address] 03/09/2025 1:15 PM EDT Office Visit [facility] OPTOMETRY [address] [place] [address] Autumn Thomas, OD [address] [place] [address] Scheduled Orders Name Type Priority Associated Diagnoses Orde r Schedule Pulmonary Function Test PFT Routine Cough, unspecified type Hemoptysis Abnormal CXR Expected: 09/09/2024, Expires: 03/09/2025 documented as of this encounter Procedures Procedure Name Priority Date/Time Associated Diagnosis Comments VITAMIN B12/FOLATE, SERUM PANEL Routine 01/08/2025 8:36 AM EDT Cough, unspecified type TSH W/REFLEX TO FT4 Routine 01/08/2025 8 :36 AM EDT Cough, unspecified type BASIC METABOLIC PANEL Routine 01/08/2025 8:36 AM EDT Cough, unspecified type BASIC METABOLIC PANEL Routine 10/22/2024 9:24 AM EDT Cough, unspecified type CBC WITH AUTO DIFFERENTIAL Routine 09/11/2024 10:54 AM EST Cough, unspecified type Hemoptysis Abnormal CXR IMMUNOGLOBULIN E Routine 09/11/2024 10:5 4 AM EST Cough, unspecified type Hemoptysis Abnormal CXR documented in this encounter Results * TSH with Reflex to Free T4 (01/08/2025 8:36 AM EDT) TSH reflex Free T4 1.11 0.32 - 4.0 uIU/mL [facility] 01/08/2025 8:36 AM EDT 01/08/2025 9:58 AM EDT us Generic External Data Provider LAB BLOOD ORDERAB LES Final Result Performing Organization Address [facility]/ZIP Co de Phone Number [facility] [address] [place] [phone] * Vitamin B12 (Cobalamin) and Folate Panel, Serum (01/08/2025 8:36 AM EDT) Vitamin B12 238 200 - 900 pg/mL [facility] Comment:NORMAL 200-900 PG/ML INDETERMINATE 160-199 PG/ML DEFICIENT < 160 PG/ML Folate 8.2 > or = 4.0 ng/mL [facility] Comment:Reference Values:> o r = 4.0 ng/mL< 4.0 ng/mL suggests folate deficiency Methotrexate, aminopterin and folinic acid(leucovorin) are chemotherapeutic agents whose molecularstructures are similar to folate; therefore, the Architectfolate assay cannot be used for patients using these drugs. 01/08/2025 8:36 AM EDT 01/08/2025 9:58 AM EDT [employer] External Data Provider LAB BLOOD ORDERAB LES Final Result Performing Organization Address [facility] Co de Phone Number [facility] [address] [place] [phone] * (ABNORMAL) Basic Metabolic Panel (01/08/2025 8:36 AM EDT) Sodium 140 135 - 145 mmol/L [facility] Potassium 3.9 3.3 - 5.1 mmol/L [facility] Chloride 105 96 - 108 mmol/L [facility] Carbon Dioxide 29 22 - 29 mmol/L [facility] Anion Gap 10(L) 12 - 20 [facility] Urea Nitrogen (BUN) 15 9 - 16 mg/dL [facility] Creatinine, Serum 0.79 0.5 - 1.4 mg/dL [facility] Estimated Glomerular Filt Rate >60 [facility] Comment:Chronic Kidney Disea se: Estimated GFR < 60 mL/min/[id number] Kidney Disease: Estimated GFR < 15 mL/min/1.73m2 Glucose 109 60 - 115 mg/dL [facility] Calcium 9.3 8.4 - 10.2 mg/dL [facility] 01/08/2025 8:36 AM EDT 01/08/2025 9:58 AM EDT Generic External Data Provider LAB BLOOD ORDERAB LES Final Result Performing Organization Address City/[facility]/ZIP Co de Phone Number [facility] [address] [place] [phone] * Basic Metabolic Panel (10/22/2024 9:24 AM EDT) [facility] Sodium 140 135 - 145 mmol/L [facility] Potassium 4.1 3.3 - 5.1 mmol/L [facility] Chloride 103 96 - 108 mmol/L [facility] Carbon Dioxide 28 22 - 29 mmol/L [facility] Anion Gap 13 12 - 20 [facility] Urea Nitrogen (BUN) 15 9 - 16 mg/dL [facility] Creatinine, Serum 0.78 0.5 - 1.4 mg/dL [facility] Estimated Glomerular Filt Rate >60 [facility] Comment:Chronic Kidney Disea se: Estimated GFR < 60 mL/min/[id number] Kidney Disease: Estimated GFR < 15 mL/min/1.73m2 Glucose 84 60 - 115 mg/dL [facility] Calcium 9.6 8.4 - 10.2 mg/dL [facility] 10/22/2024 9:24 AM EDT 10/22/2024 10:47 AM EDT Generic External Data Provider LAB BLOOD ORDERAB LES Final Result Performing Organization Address [facility]/ZIP Co de Phone Number [facility] [address] [place] [phone] * Immunoglobulin E (09/11/2024 10:54 AM EST) Immunoglobulin E 44 <[id number] kU/L [facility] Comment:THIS TEST WAS PERFOR MED AT:[facility] [place] [phone] COREY MD Blood Venous blood specimen / Unknown 09/11/2024 10:54 AM EST 09/11/2024 1:06 PM EST us Opal Pleitez MD LAB BLOOD ORDERABLES Final Resul t [facility] [address] [place] [phone] [phone] * (ABNORMAL) CBC auto differential (09/11/2024 10:54 AM EST) Pathologist [facility] White Blood Count 5.7 4.8 - 10.8 X10*3/uL [facility] Red Blood Count 5.58 4.60 - 5.80 X10*6/uL [facility] Hemoglobin 15.7 14.0 - 18.0 g/dl [facility] Hematocrit 48.4 42.0 - 52.0 % [facility] Mean Corpuscular Volume 86.7 80.0 - 98.0 fL [facility] Mean Corpuscular Hemoglobin 28.1 27.0 - 33.0 pg [facility] Mean Corpuscular HGB Conc 32.4 31.0 - 36.0 g/dl [facility] Red Cell Distribution Width 13.2 11.0 - 16.0 % [facility] Platelet Count 362 160 - 400 X10*3/uL [facility] Mean Platelet Volume 9.8 9.4 - 12.4 fL [facility] Neutrophils Percent Auto 59.2 45 - 73 % [facility] Imm Gran Pct Auto 0.7(H) 0.0 - 0.4 % [facility] Lymphocytes Percent Auto 29.9 20 - 40 % [facility] Monocytes Percent Auto 7.9 2 - 11 % [facility] Eosinophils Percent Auto 1.9 0 - 4 % [facility] Basophils Percent Auto 0.4 0 - 2 % [facility] NRBC Pct Auto 0.0 0.0 - 0.2 /100WBC [facility] Neutrophils Absolute Auto 3.4 2.0 - 8.3 x10*3/uL [facility] Imm Gran Abs Auto 0.04(H) 0.00 - 0.03 X10*3/uL [facility] Lymphocytes Absolute Auto 1.7 1.2 - 4.9 X10*3/uL [facility] Monocytes Absolute Auto 0.5 0.1 - 1.2 X10*3/uL [facility] Eosinophils Absolute Auto 0.1 0.0 - 0.4 X10*3/uL [facility] Basophils Absolute Auto 0.0 0.0 - 0.2 X10*3/uL [facility] NRBC Abs Auto 0.000 0.0 - 0.012 X10*3/uL [facility] Blood Venous blood specimen / Unknown 09/11/2024 10:54 AM EST 09/11/2024 1:06 PM EST us Opal Pleitez MD LAB BLOOD ORDERABLES Final Resul t Performing Organization Address City/State/[facility] Co de Phone Number [facility] [address] [place] [phone] documented in this encounter Visit Diagnoses Diagnosis Cough, unspecified type- Primary Hemoptysis Abnormal CXR Nonspecific (abnormal) findings on radiological and other examination of lung field documented in this encounter Additional Health Concerns Assessment Noted Time PHQ-9 Depression Total Score: 18 024 1:03 PM EDT documented as of this encounter Care Teams Cloth Finishing Range Operator Relationship Specialty Start Date End Date Tenisha Castillo MD [address] [place] [address] PCP - General Family Medicine 10/05/23 documented as of this encounter
--- NOTE | 2025-01-21 | EEG_ITS ---
Description: This is a routine waking EEG using the 10-20 electrode placement system. The waking background activity consists of low-voltage fast frequency seen diffusely intermixed with low to moderate voltage posterior 10 hertz alpha frequency.? Photic stimulation is without activation.? Hyperventilation produces no change in the background activity. No focal, lateralizing or paroxysmal discharges are seen. Impression: This waking EEG is within normal limits MTDD
== END 2025-01-20 13:32 | disposition home or self-care (01) ==
LOC: HO.NEURO 13:31
PROVIDERS: PCP General Practice; Visit Provider Psychiatry & Neurology Neurology
DX: R41.3 Other amnesia (principal)
CPT/HCPCS: 95819

== ENCOUNTER → 2025-01-20 13:31 | Outpatient (BNV) | payer OTHER, SELFPAY | PROVIDERS: PCP General Practice; Visit Provider Psychiatry & Neurology Neurology | DX: R41.9 Unspecified symptoms and signs involving cognitive functions and awareness (principal) | CPT/HCPCS: 95816 ==

== ENCOUNTER 2025-03-04 09:45 | Outpatient (AMB) | payer OTHER, SELFPAY ==
--- NOTE | 2025-03-04 10:16 | A.OFFVIS_ITS ---
Intake Visit Reasons: RESULTS Allergies No Known Allergies (No Known Allergies*) Allergy (Unverified 04/01/20 19:10) Medication List - Last Reconciled 03/04/25 by Benigno Gonzalez MD lisinopril 5 mg PO DAILY olmesartan 5 mg PO DAILY torsemide 10 mg PO DAILY HPI Comments Details: He hasbeen doing well. Occasional cramp on face. He has some memory lapses periodically and was concerned about SZ. Being treated for HBP. Episodes of losing track of time also reported in 2020 . At? age 6, he had one episode where he was staring for long period of time. He gets occasional headaches. His had a CAT scan of the head on 08/11/19, which was normal.. Gets nervous in public spaces and gets eye twitches. Stays home after work. [facility] Medical History (Updated 03/04/25 @ 10:23 by Benigno Gonzalez MD) Memory change LUPE on CPAP Review of Systems Const Details: Sleep:? Difficulty getting to sleepdenies.? Difficulty maintaining sleepdenies?.? Urge to move legsdenies.? Teeth grindingdenies.? Shouting or Kicking during sleep denies.? Abnormal behavior during sleepdenies.? Excessive sleepdenies.? Snoring denies.? Daytime sleepinessdenies. ???General/Constitutional:? Change in appetitedenies.? Chillsdenies.? Fatiguedenies.? Feverdenies.? Weight gaindenies.? Weight lossdenies. ???Ophthalmologic:? Blurred visiondenies.? Diminished visual acuitydenies. ???ENT:? Stuffinessdenies.? Decreased hearingdenies.? Dry mouthdenies.? Ear paindenies.? Nosebleeddenies.? Ringing in the earsdenies.? Sinus paindenies.? Sore throat denies.? Swollen glandsdenies. ???Endocrine:? Cold intolerancedenies.? Excessive thirstdenies.? Frequent urinationdenies.? Heat intolerancedenies. ???Respiratory:? Shortness of breathdenies.? Chest paindenies.? Coughdenies. ???Breast:? Breast lumpdenies.? Nipple dischargedenies. ???Cardiovascular:? Chest pain at restdenies.? Chest pain with exertiondenies.? Claudicationdenies .? Dizzinessdenies.? Fluid accumulation in the legsdenies.? Irregular heartbeat denies.? Palpitationsdenies. ???Gastrointestinal:? Abdominal paindenies.? Constipationdenies.? Diarrheadenies.? Difficulty swallowingdenies.? Heartburndenies.? Nauseadenies.? Rectal bleedingdenies. ???Hematology:? Easy bruisingdenies.? Prolonged bleedingdenies. ???Genitourinary:? Frequent urinationdenies.? Urgencydenies.? Incontinencedenies.? Erectile Dysfunctiondenies. ???Musculoskeletal:? Neck paindenies.? Back paindenies.? Muscle achesdenies.? Painful jointsdenies.? Sciaticadenies.? Weaknessdenies. ???Podiatric:? Difficulty walkingdenies.? Foot numbnessdenies. ???Neurologic:? Difficulty swallowingdenies.? Balance difficultydenies.? Coordinationnormal.? Difficulty speakingdenies.? Dizzinessdenies.? Faintingdenies.? Gait abnormality denies.? Headachedenies.? Loss of strengthdenies.? Loss of use of extremity denies.? Low back paindenies.? Memory lossdenies.? Seizuresdenies.? Ticsdenies.? Tingling/Numbnessdenies.? Transient loss of visiondenies.? Tremordenies. ???Psychiatric:? Anxietydenies.? Auditory/visual hallucinationsdenies.? Delusionsdenies.? Depressed mooddenies.? Stressorsdenies.? Substance abusedenies.? Suicidal thoughtsdenies. Physical Exam Neuro Other: Neurological: Abnormal neurological findings:??none.?Mental Status:??alert and oriented X 3,?Normal attention, orientation, memory and affect.?Cranial Nerves:??Pupils are equal, round and reactive to light. Fundoscopy shows normal disc bilaterally. External occular muscles are intact. Visual wells are full, no ptosis. Face is symmetrical, no facial weakness or droop. Facial sensations are normal. Tongue protrudes in midline. Palate elevates symmetrically. Shoulder shrugging is normal..?Motor Examination:??Normal muscle tone, bulk and strength,?No atrophy or fasciculations,?No drift of the extended upper extremities,?Deep tendon reflexes are 2+?,?Plantars are flexor?.?Motor Strength:?Proximal Muscles (out of 5):5Distal Muscles (out of 5):5Neck Flexors (out of 5):5Neck Extensors (out of 5):5Deltoid (out of 5):5Biceps (out of 5):5Triceps (out of 5):5Serratus Anterior (out of 5):5Wrist Extensors (out of 5):5APB (out of 5):5Finger Spread (out of 5):5Ileopsoas (out of 5):5Quadriceps (out of 5):5Hamstrings (out of 5):5Tibialis Anterior (out of 5):5Peronei (out of 5):5EDB (out of 5):5Gastrocnemius (out of 5):5Straight Leg Raising:??90 degrees.?Sensory Exam:??Normal light touch, temperature, pinprick, vibration and joint-position sensations?,?Rhomberg sign is absent.?Coordination:??no ataxia,?no titubation,?eoeozp-oo-xlzb, onhl-xmxl-lqsn test and rapid alternating movements were normal.?Gait Exam:??Within normal limits.?Cerebellar Signs:??Agpsuy-fn-xrxs and wrnv-pe-nnni is normal,?no dysdiadochokinesia?.?Extrapyramidal System:??No tremor, rigidity with normal facial expressions,?No bradykinesia, no bradyphrenia. Normal arm swing and posture. No propulsion or retropulsion.?Speech:??Normal,?no dysphasia or dysarthria..? Mini Mental Status Exam: Level of Consciousness:??Alert.?Orientation:??Knows correct year, month, date, day and season,?Knows correct city, county and state. Knows correct location and floor.?Registration:??Able to register 3 objects.?Attention:??Serial 7's performed accurately.?Recall:??Able to recall 3 out of 3 objects.?Language:??Normal spontaneous speech, fluency, repetition,naming, comprehension, reading and writing.?Total Score:??30/30.? General Examination: GENERAL APPEARANCE:??normal,?in no acute distress.? HEAD:??normocephalic,?atraumatic.?EYES:??sclera non-icteric,?conjunctiva clear.?EARS:??auditory canal clear,?tympanic membrane intact, clear.?NOSE:??no lesions.?ORAL CAVITY:??gums normal,?mucosa moist,?no lesions.?THROAT:??clear.?NECK/THYROID:??no cervical lymphadenopathy,?thyroid normal,?neck supple, full range of motion,?no carotid bruit.?SKIN:??no rashes,?no significant birthmarks.?HEART:??S1, S2 normal,?no murmurs.?LUNGS:??clear anteriorly and posteriorly.?CHEST:??no gross rib deformity,?clear to auscultation.?BACK:??normal exam of spine.?EXTREMITIES:??no edema.?PERIPHERAL PULSES:??normal.?PSYCH:??alert, oriented,?cognitive function intact,?cooperative with exam.? Results Reviewed Results Reviewed: 01/21/25 EEG: This waking EEG is within normal limits 01/07/25 Labs normal. Assessment & Plan Assessment & Plan (1) Memory change: Code(s): R41.3 - Other amnesia Category: Medical (2) LUPE on CPAP: Code(s): G47.33 - Obstructive sleep apnea (adult) (pediatric) Category: Medical Plan Continue current meds an duse CPAP . Reassured. f/u PRN Coding Level of Care Code Est Pt Level 4 (01196) Diagnoses Memory change R41.3 LUPE on CPAP G47.33
--- OUTSIDE RECORDS SUMMARY | 2025-03-04 10:35 | XMS_ITS | Encounter Summary ---
Author Organization [employer] Address [address] [facility] [address] [place] [address] Care Team Providers Care Binder Technician Name Role Phone Tenisha Castillo MD Primary Care Provider [phone] Reason for Referral * PFT (Routine) - Closed Specialty Diagnoses / Procedures Referred By Contac t Referred To Contact Diagnoses Cough, unspecified type Hemoptysis Abnormal CXR Procedures Pulmonary Function Test Opal Pleitez MD [address] [place] [phone] Phone: tel: fax: [address] Phone: tel: fax: Referral ID Status Reason Start Date Expiration Date Visits Re quested Visits Authorized [id number] Closed 09/09/2024 09/09/2025 1 1 Encounter Details Date Type Department Care Team (Late st Contact Info) Description 09/09/2024 Orders Only [facility] [address] [place] [address] [phone] Opal Pleitez MD [address] [place], [place] [phone] Cough, unspecified type (Primary Dx); Hemoptysis; Abnormal [...] Care Team (Late st Contact Info) Description 03/06/2025 1:30 PM EDT Office Visit [facility] [address] [place] [address] Tenisha Castillo MD [address] [place] [address] 03/09/2025 1:15 PM EDT Office Visit [facility] [address] [place] [address] Autumn Thomas, OD [address] [place] [address] Scheduled Orders Name Type Priority Associated Diagnoses [...] Free T4 1.11 0.32 - 4.0 uIU/mL [facility] 01/08/2025 8:36 AM EDT 01/08/2025 9:58 AM EDT us Generic External Data Provider LAB BLOOD ORDERAB LES Final Result [facility] [address] [place] [address] [phone] * Vitamin B12 (Cobalamin) and Folate Panel, Serum (01/08/2025 8:36 AM EDT) Vitamin B12 238 200 - 900 pg/mL [facility] Comment:NORMAL 200-900 PG/ML INDETERMINATE 160-199 PG/ML DEFICIENT < 160 PG/ML Folate 8.2 > or = 4.0 ng/mL [facility] Comment:Reference Values:> o r = 4.0 ng/mL< 4.0 ng/mL suggests folate deficiency Methotrexate, aminopterin and folinic acid(leucovorin) are chemotherapeutic agents whose molecularstructures are similar to folate; therefore, the Architectfolate assay cannot be used for patients using these drugs. 01/08/2025 8:36 AM EDT 01/08/2025 9:58 AM EDT us Generic External Data Provider LAB BLOOD ORDERAB LES Final Result [facility] [address] [place] [address] [phone] * (ABNORMAL) Basic Metabolic Panel (01/08/2025 8:36 AM EDT) Sodium 140 135 - 145 mmol/L [facility] Potassium 3.9 3.3 - 5.1 mmol/L [facility] Chloride 105 96 - 108 mmol/L [facility] Carbon Dioxide 29 22 - 29 mmol/L [facility] Anion Gap 10(L) 12 - 20 [facility] Urea Nitrogen (BUN) 15 9 - 16 mg/dL [facility] Creatinine, Serum 0.79 0.5 - 1.4 mg/dL [facility] Estimated Glomerular Filt Rate >60 [facility] Comment:Chronic Kidney Disea se: Estimated GFR < 60 mL/min/[id number] Kidney Disease: Estimated GFR < 15 mL/min/1.73m2 Glucose 109 60 - 115 mg/dL [facility] Calcium 9.3 8.4 - 10.2 mg/dL [facility] 01/08/2025 8:36 AM EDT 01/08/2025 9:58 AM EDT Generic External Data Provider LAB BLOOD ORDERAB LES Final Result Performing Organization Address [facility] de Phone Number [facility] [address] [place] [address] [phone] * Basic Metabolic Panel (10/22/2024 9:24 AM EDT) Sodium 140 135 - 145 mmol/L [facility] Potassium 4.1 3.3 - 5.1 mmol/L [facility] Chloride 103 96 - 108 mmol/L [facility] Carbon Dioxide 28 22 - 29 mmol/L [facility] Anion Gap 13 12 - 20 [facility] Urea Nitrogen (BUN) 15 9 - 16 mg/dL [facility] Creatinine, Serum 0.78 0.5 - 1.4 mg/dL [facility] Estimated Glomerular Filt Rate >60 [facility] Comment:Chronic Kidney Disea se: Estimated GFR < 60 mL/min/1.37j0Njcdbg Kidney Disease: Estimated GFR < 15 mL/min/1.73m2 Glucose 84 60 - 115 mg/dL [facility] Calcium 9.6 8.4 - 10.2 mg/dL [facility] 10/22/2024 9:24 AM EDT 10/22/2024 10:47 AM EDT Generic External Data Provider LAB BLOOD ORDERAB LES Final Result Performing Organization Address [facility] de Phone Number [facility] [address] [place] [address] [phone] * Immunoglobulin E (09/11/2024 10:54 AM EST) Immunoglobulin E 44 <UQ=848 kU/L [facility] Comment:THIS TEST WAS PERFOR MED AT:[facility] [address] [phone] COREY MD Blood Venous blood specimen / Unknown 09/11/2024 10:54 AM EST 09/11/2024 1:06 PM EST us Opal Pleitez MD LAB BLOOD ORDERABLES Final Resul t [facility] [address] [place] [address] [phone] * (ABNORMAL) CBC auto differential (09/11/2024 10:54 AM EST) White Blood Count 5.7 4.8 - 10.8 X10*3/uL [facility] Red Blood Count 5.58 4.60 - 5.80 X10*6/uL [facility] Hemoglobin 15.7 14.0 - 18.0 g/dl [facility] Hematocrit 48.4 42.0 - 52.0 % [facility] Mean Corpuscular Volume 86.7 80.0 - 98.0 fL [facility] Mean Corpuscular Hemoglobin 28.1 27.0 - 33.0 pg [facility] Mean Corpuscular HGB Conc 32.4 31.0 - 36.0 g/dl [facility] Red Cell Distribution Width 13.2 11.0 - 16.0 % [facility] Platelet Count 362 160 - 400 X10*3/uL [facility] Mean Platelet Volume 9.8 9.4 - 12.4 fL [facility] Neutrophils Percent Auto 59.2 45 - 73 % [facility] Imm Gran Pct Auto 0.7(H) 0.0 - 0.4 % [facility] Lymphocytes Percent Auto 29.9 20 - 40 % [facility] Monocytes Percent Auto 7.9 2 - 11 % [facility] Eosinophils Percent Auto 1.9 0 - 4 % [facility] Basophils Percent Auto 0.4 0 - 2 % [facility] NRBC Pct Auto 0.0 0.0 - 0.2 /100WBC [facility] Neutrophils Absolute Auto 3.4 2.0 - 8.3 x10*3/uL [facility] Imm Gran Abs Auto 0.04(H) 0.00 - 0.03 X10*3/uL [facility] Lymphocytes Absolute Auto 1.7 1.2 - 4.9 X10*3/uL [facility] Monocytes Absolute Auto 0.5 0.1 - 1.2 X10*3/uL [facility] Eosinophils Absolute Auto 0.1 0.0 - 0.4 X10*3/uL [facility] Basophils Absolute Auto 0.0 0.0 - 0.2 X10*3/uL [facility] NRBC Abs Auto 0.000 0.0 - 0.012 X10*3/uL [facility] Blood Venous blood specimen / Unknown 09/11/2024 10:54 AM EST 09/11/2024 1:06 PM EST us Opal Pleitez MD LAB BLOOD ORDERABLES Final Resul t [facility] [address] [place] [address] [phone] documented in this encounter Visit Diagnoses Diagnosis Cough, unspecified type- Primary Hemoptysis Abnormal CXR Nonspecific (abnormal) findings on radiological and other examination of lung field documented in this encounter Additional Health Concerns Assessment Noted Time PHQ-9 Depression Total Score: 18 2 024 1:03 PM EDT documented as of this encounter Care Teams Binder Technician Relationship Specialty Start Date End Date Tenisha Castillo MD [address] [place] [address] PCP - General Family Medicine 10/05/23 documented as of this encounter
--- OUTSIDE RECORDS SUMMARY | 2025-03-04 10:35 | XMS_ITS | Clinical Summary ---
Author Organization [address] [facility] Address [address] [place] [address] Phone Care Team Providers Care Hot Packer Name Role Phone Leslie Rios MD Primary Care Provider [phone] Allergies Active Allergy Reactions Criticality Noted Date [...] 59.9 in adult (CMS/HCC V24, CMS/HCC V28) Social History Tobacco Use Types Packs/Day Years [...] 2:45 PM EDT Office Visit Pulmonolgy - [place] [address] [place] [phone] Hailey Ledezma MD [address] [facility] [address] [place] [address] Health Maintenance Due Date Last Done Comments Hepatitis B Vaccines (1 of 3 - 19+ 3-dose series) 10/05/2003 Social Influencers of Health Screening 06/17/2022 Hypertension/CHF/CAD Annual BMP Blood Test 08/29/2023 COVID-19 Vaccine ( season) 2024 08/11/2021, 10/13/2020, 09/15/2020 Depression Screening 07/16/2024 09/03/2023 Influenza Vaccine (#1) 2025 , 08/31/2020, 04/30/2017, Additional history exists DTaP,Tdap,and Td [...] * Depression Screening (09/03/2023) Depression Screening Abstracted [facility] Provider HEALTH MAINTENANCE Final Result from Last 3 Months or Most Recently Relevant to Health Maintenance Insurance [facility] Care Teams Hot Packer Relationship Specialty Start Date End Date Leslie Rios MD [address] [place] [phone] PCP - General 10/02/22
== END 2025-03-04 10:27 | disposition home or self-care (01) ==
LOC: HO.HSM 09:46
PROVIDERS: PCP General Practice; Referring Provider General Practice; Visit Provider Psychiatry & Neurology Neurology
DX: R41.3 Other amnesia (principal); G47.33 Obstructive sleep apnea (adult) (pediatric)
CPT/HCPCS: 99214

== ENCOUNTER → 2025-03-04 09:45 | Outpatient (BNVA) | payer OTHER, SELFPAY | PROVIDERS: PCP General Practice; Referring Provider General Practice; Visit Provider Psychiatry & Neurology Neurology | DX: R41.3 Other amnesia (principal); G47.33 Obstructive sleep apnea (adult) (pediatric); Z99.89 Dependence on other enabling machines and devices | CPT/HCPCS: 99212 ==